=== PATIENT | male | born 1975 | race Caucasian/White ===

== ENCOUNTER 2020-06-20 17:02 | Emergency (ER) | payer OTHER, SELFPAY | END 2020-06-20 18:43 | disposition left against medical advice (07) | PROVIDERS: Emergency Provider Emergency Medicine | DX: R06.02 Shortness of breath (principal) | CPT/HCPCS: 99281 ==

== ENCOUNTER 2020-06-27 06:43 | Inpatient (IN) | payer SELFPAY ==
[2020-06-27] VITALS (13 sets, daily range): BP systolic 119–187; BP diastolic 68–111; PULSE 90–150; RESP 14–26; TEMP 36.4–36.9; O2SAT 95–98; BMI 39.4
--- NOTE | 2020-06-27 06:50 | PC.NURSE ---
DISCLOSED THAT HE LOST HIS IN MARCH AND HAS BEEN HAVING DEPRESSION AND ANXIETY SINCE.
--- NOTE | 2020-06-27 07:14 | XR_ITS ---
EXAMINATION: XR CHEST CLINICAL INFORMATION: Shortness of breath COMPARISON: None TECHNIQUE: Frontal view of the chest was obtained. FINDINGS: Cardiac silhouette is at the upper limits of normal in size. The lungs are adequately aerated. There is mild asymmetric elevation of the right hemidiaphragm. Subtle linear opacity in the lateral left lung base is most suggestive of atelectasis. No lobar consolidation is present. No pleural effusion or pneumothorax. XR/XR chest 1V IMPRESSION: No acute pulmonary pathology.
--- NOTE | 2020-06-27 07:14 | ECG_ITS ---
Test Reason : RAPID HR Blood Pressure : / mmHG Vent. Rate : 122 BPM Atrial Rate : 416 BPM P-R Int : 000 ms QRS Dur : 098 ms QT Int : 284 ms P-R-T Axes : 000 034 020 degrees QTc Int : 404 ms Atrial fibrillation with rapid ventricular response Abnormal ECG No previous ECGs available Referred By: Desi Paniagua Electronically Signed By:MARTINA BACA MD
--- NOTE | 2020-06-27 07:22 | ED_ITS ---
HPI - General Adult General Chief complaint: General Medical Stated complaint: Sob Time Seen by Provider: 06/27/20 07:13 Source: patient Mode of arrival: ambulatory Limitations: no limitations History of Present Illness HPI narrative: 45-year-old male walked into the emergency department for shortness of breath woke him up from sleep, patient woke up from sleep gasping for air and feeling anxious and hyperventilating as a result also has been having numbness in his both hands, patient declined any chest pain, patient declined any risk factor for PE, patient declined any history of lung disease however patient admitted to be a heavy smoker for many years, patient is heavyset but declined any history of sleep apnea or using CPAP/supplemental oxygen at home. Patient describes symptoms as shortness of breath with no chest pain started about 1 hour before arrival to the emergency department, usually improve when he sat up or get out of the bed, no relieving factor, no worsening factors either. No other associated symptoms be side being anxious. Patient also declined risk of exposure to COVID-19 infected personal. Related Data Allergies Allergy/AdvReac Type Severity Reaction Status Date / Time No Known Allergies Allergy Verified 06/27/20 06:49 [No Known Allergies*] Review of Systems Review of Systems: All other systems are reviewed and are negative Constitutional: Reports as per HPI and Reports no additional constitutional complaints Eyes: Reports as per HPI and Reports no additional eye complaints Reports system reviewed and no additional complaints, except as documented Cardiovascular: Reports as per HPI and Reports no additional cardiovascular complaints Respiratory: Reports as per HPI and Reports no additional respiratory complaints Gastrointestinal: Reports as per HPI and Reports no additional gastrointestinal complaints Genitourinary: Reports no additional female genitourinary complaints Musculoskeletal: Reports no additional musculoskeletal complaints Skin/Breast: Reports system reviewed and no additional complaints, except as docu Psychiatric: Reports no additional psychiatric complaints Endocrine: Reports no additional endocrine complaints Hematologic/Lymphatic: Reports no additional hematologic/lymphatic complaints Allergic/Immunologic: Reports no additional allergic/immunologic complaints Reports system reviewed and no additional complaints, except as documented and Reports Abnormal speech present PMFSH Past Medical History Medical History Asthma HTN (hypertension) Social History Social History Advance Directives: No Advance Directives Information Provided: Yes Physical Exam Vital Signs: Vital Signs: Last Vital Signs Temp 98.0 F 06/27/20 06:45 Pulse 101 H 06/27/20 08:06 Resp 16 06/27/20 07:43 BP 129/78 06/27/20 08:06 Pulse Ox 98 06/27/20 08:06 Body Mass Index 39.4 Vital signs have been reviewed as normal and appeared to be correct. Blood pressure in the high range. Tachycardia. Tachypnea. Temperature normal. Oxygen saturation normal. Appearance: Alert. Oriented X3. Anxious Head: Normal external exam. Normocephalic. Atraumatic. No Castro signs noted. No raccoon eyes noted Eyes: PERRLA. EOMI. Conjunctiva and sclera normal. Eyelids normal. ENT: EAC normal. TM's Normal. Pharynx normal. Uvula midline. Moist mucous membranes. No trismus noted. No drooling noted. No muffled voice noted. Neck: Normal inspection. Neck supple. FROM. No adenopathy. Thyroid Normal. No meningeal signs. No neck mass noted. No JVD CVS: Rapid heart rate with regular irregular beats.. Heart sound normal. No murmurs noted. Pulses normal throughout. Respiratory: No respiratory distress. Painless inspiration. Breath sounds normal. No wheezes/rales/rhonchi noted. Chest nontender. No accessory muscle usage noted or decreased air movement noted. Abdomen: Soft and nontender. Bowel sounds normal in all 4 quadrants. No distention noted. No organomegaly noted. No visible injury noted. Back: No CVA tenderness. Full range of motion noted. Skin: Skin warm and dry. Normal skin color. Normal skin turgor. No rashes/lesions/lacerations noted. Extremities: + 1 lower extremity edema. Extremities exhibit normal range of motion. Extremities nontender. Neuro: Oriented X 3. No motor deficit. No sensory deficit. Reflexes normal. Course Course Course Narrative: 45 years old male relatively otherwise healthy heavy smoker presented with intermittent episodes of shortness of breath, patient found to have atrial fibrillation with rapid ventricular response in the emergency department patient reported there is no past history of atrial fibrillation. Start the patient on AV block age (Cardizem), chest x-ray, check labs, re- evaluate the patient. Medical Decision Making MDM Narrative Medical decision making narrative: Assessment and plan. 45-year-old male woke up at 5 a.m. this morning with difficulty breathing and gasping for air, patient also appeared anxious with component of h yperventilation as a result. 1. EKG showing new onset of atrial fibrillation with rapid ventricular response, patient received a loading dose of Cardizem which was successful to achieve heart rate 90s to 110s, will start the patient on Cardizem drip and admit. 2. Because the anxiety component of patient's symptoms patient receive Ativan in the ED. 3. Patient had low risk for PE and D-dimer was unremarkable. 4. Tested negative for COVID. 5. Will repeat troponin in 3 hours. Admit the patient. Lab Data Lab results reviewed: Yes I reviewed the patient's lab results. Result diagrams: 06/27/20 07:22 06/27/20 07:21 Labs: Lab Results 06/27/20 06/27/20 06/27/20 Range/Units 07:21 07:21 07:22 WBC 3.7 L (4.8-10.8) X10*3/uL RBC 4.83 (4.60-5.80) X10*6/uL Hgb 15.6 (14.0-18.0) g/dl Hct 46.1 (42-52) % MCV 95.4 (80-98) fL MCH 32.3 (27.0-33.0) pg MCHC 33.8 (31.0-36.0) g/dl RDW 13.8 (11.0-16.0) % Plt Count 101 L (160-400) X10*3/uL MPV 9.7 (9.4-12.4) fL Immature Gran % (Auto) 0.5 H (0.0-0.4) % Neut % (Auto) 53.9 (45-73) % Lymph % (Auto) 27.5 (20-40) % [place] % (Auto) 13.6 H (2-11) % Eos % (Auto) 3.2 (0-4) % Baso % (Auto) 1.3 (0-2) % Lymph # (Auto) 1.0 L (1.2-4.9) X10*3/uL [place] # (Auto) 0.5 (0.1-1.2) X10*3/uL Eos # (Auto) 0.1 (0.0-0.4) X10*3/uL Baso # (Auto) 0.1 (0.0-0.2) X10*3/uL Abs Immat Gran (auto) 0.02 (0.00-0.03) X10*3/uL Absolute Neuts (auto) 2.0 (2.0-8.3) X10*3/uL Absolute Nucleated RBC 0.000 (0.0-0.012) X10*3/uL Nucleated RBC % (auto) 0.0 (0.0-0.2) /100WBC D-Dimer NG/ML Sodium 138 (135-145) mmol/L Potassium 3.7 (3.3-5.1) mmol/l Chloride 102 (96-108) mmol/L Carbon Dioxide 22 (22-29) mmol/L Anion Gap 18 (12-20) BUN 12 (9-16) mg/dL Creatinine 0.71 (0.5-1.4) mg/dL Estim Creat Clear Calc 182.5 Estimated GFR > 60 Random Glucose 146 H (60-115) mg/dL Calcium 8.4 (8.4-10.2) mg/dL Total Bilirubin 1.0 (0.0-1.0) mg/dL Direct Bilirubin 0.6 H (0.0-0.5) mg/dL AST 107 H (5-37) U/L ALT 81 H (0-40) U/L Alkaline Phosphatase 86 (39-117) U/L Troponin I High Sens 14.1 (<3.5-35.0) ng/L B-Natriuretic Peptide 12 (<100) pg/mL Total Protein 7.7 (6.5-8.0) g/dL Albumin 3.6 (3.5-5.0) g/dL Lipase 68 (8-78) U/L COVID-19 (CARL) (Negative) COVID-19 Clin Com 06/27/20 06/27/20 Range/Units 07:22 07:22 WBC (4.8-10.8) X10*3/uL RBC (4.60-5.80) X10*6/uL Hgb (14.0-18.0) g/dl Hct (42-52) % MCV (80-98) fL MCH (27.0-33.0) pg MCHC (31.0-36.0) g/dl RDW (11.0-16.0) % Plt Count (160-400) X10*3/uL MPV (9.4-12.4) fL Immature Gran % (Auto) (0.0-0.4) % Neut % (Auto) (45-73) % Lymph % (Auto) (20-40) % [place] % (Auto) (2-11) % Eos % (Auto) (0-4) % Baso % (Auto) (0-2) % Lymph # (Auto) (1.2-4.9) X10*3/uL [place] # (Auto) (0.1-1.2) X10*3/uL Eos # (Auto) (0.0-0.4) X10*3/uL Baso # (Auto) (0.0-0.2) X10*3/uL Abs Immat Gran (auto) (0.00-0.03) X10*3/uL Absolute Neuts (auto) (2.0-8.3) X10*3/uL Absolute Nucleated RBC (0.0-0.012) X10*3/uL Nucleated RBC % (auto) (0.0-0.2) /100WBC D-Dimer < 200 NG/ML Sodium (135-145) mmol/L Potassium (3.3-5.1) mmol/l Chloride (96-108) mmol/L Carbon Dioxide (22-29) mmol/L Anion Gap (12-20) BUN (9-16) mg/dL Creatinine (0.5-1.4) mg/dL Estim Creat Clear Calc Estimated GFR Random Glucose (60-115) mg/dL Calcium (8.4-10.2) mg/dL Total Bilirubin (0.0-1.0) mg/dL Direct Bilirubin (0.0-0.5) mg/dL AST (5-37) U/L ALT (0-40) U/L Alkaline Phosphatase (39-117) U/L Troponin I High Sens (<3.5-35.0) ng/L B-Natriuretic Peptide (<100) pg/mL Total Protein (6.5-8.0) g/dL Albumin (3.5-5.0) g/dL Lipase (8-78) U/L COVID-19 (CARL) Negative (Negative) COVID-19 Clin Com See Note Imaging Data Chest x-ray: Radiologist's impression: No acute pulmonary pathology. ECG Data Interpretation: Atrial fibrillation with rapid ventricular response at 122 beats per minutes, normal axis deviation, otherwise normal intervals. Critical Care Time Critical Care Time Critical Care Time: Yes Total Critical Care Time: 40 Attestation: I spent 40 minutes providing critical care level to the patient at the bedside, reviewing x-ray, monitoring patient on anti arrhythmia IV drips, reassessing the patient, consulting with hospitalist to admit. Discharge Plan Discharge Clinical Impression: Acute dyspnea, Atrial fibrillation, new onset, Anxiety Patient Disposition: Admitted As Inpatient
[2020-06-27 07:32] LABS: MANUAL DIFF FLAG NO
[2020-06-27] MEDS: dilTIAZem HCL 50 MG/10 ML VIAL 20 MG IVPUSH (07:38)
[2020-06-27 07:41] LABS: Basophils Absolute Auto 0.1 X10*3/uL (0.0-0.2); Basophils Percent Auto 1.3 % (0-2); Eosinophils Absolute Auto 0.1 X10*3/uL (0.0-0.4); Eosinophils Percent Auto 3.2 % (0-4); Hematocrit 46.1 % (42-52); Hemoglobin 15.6 g/dl (14.0-18.0); Imm Gran Abs Auto 0.02 X10*3/uL (0.00-0.03); Imm Gran Pct Auto 0.5 % (0.0-0.4); Lymphocytes Percent Auto 27.5 % (20-40); Mean Corpuscular HGB Conc 33.8 g/dl (31.0-36.0); Mean Corpuscular Hemoglobin 32.3 pg (27.0-33.0); Mean Corpuscular Volume 95.4 fL (80-98); Mean Platelet Volume 9.7 fL (9.4-12.4); Monocytes Absolute Auto 0.5 X10*3/uL (0.1-1.2); Monocytes Percent Auto 13.6 % (2-11); Neutrophils Percent Auto 53.9 % (45-73); Platelet Count 101 X10*3/uL (160-400); Red Blood Count 4.83 X10*6/uL (4.60-5.80); Red Cell Distribution Width 13.8 % (11.0-16.0); White Blood Count 3.7 X10*3/uL (4.8-10.8)
[2020-06-27 07:50] LABS: D Dimer < 200 NG/ML
[2020-06-27 07:51] LABS: COVID-19 Test Negative (Negative); IDNOW Serial# 9DD0AD1C
[2020-06-27 08:10] LABS: Alanine Aminotransferase 81 U/L (0-40); Albumin Level 3.6 g/dL (3.5-5.0); Alkaline Phosphatase 86 U/L (39-117); Anion Gap 18 (12-20); Aspartate Amino Transferase 107 U/L (5-37); Bilirubin Direct 0.6 mg/dL (0.0-0.5); Blood Urea Nitrogen 12 mg/dL (9-16); Calcium 8.4 mg/dL (8.4-10.2); Carbon Dioxide 22 mmol/L (22-29); Chloride 102 mmol/L (96-108); Creatinine Clr Calc Pharmacy 182.5; Estimated Glomerular Filt Rate > 60; Glucose Random 146 mg/dL (60-115); Lipase 68 U/L (8-78); Potassium 3.7 mmol/l (3.3-5.1); Sodium 138 mmol/L (135-145); Total Protein 7.7 g/dL (6.5-8.0)
[2020-06-27 08:11] LABS: B Type Natriuretic Peptide 12 pg/mL (<100); Troponin-I High Sensitivity 14.1 ng/L (<3.5-35.0)
--- NOTE | 2020-06-27 08:30 | PC.NURSE ---
pt continues pretty anxious HR increases with movement otherwise he is maintaining under 100bpm without the cardizem gtt
[2020-06-27] MEDS: LORazepam 2 MG/ML VIAL 0.5 MG IVPUSH (08:37)
[2020-06-27] MEDS: dilTIAZem HCL 125 MG in 0.9 % Sodium Chloride 100 ML 10 MG IVCONT (09:13)
[2020-06-27 10:25] LABS: Ethanol 112 mg/dL
[2020-06-27 10:27] LABS: Magnesium 1.8 mg/dL (1.6-2.6)
[2020-06-27 10:48] LABS: TSH reflex Free T4 2.63 mIU/mL (0.32-4.0)
[2020-06-27 10:50] LABS: Troponin-I High Sensitivity 13.3 ng/L (<3.5-35.0)
--- NOTE | 2020-06-27 10:50 | P.HPHOSP_ITS ---
History of Present Illness Date of Service: 06/27/20 <DEB Anderson - Last Filed: 06/27/20 11:18> Chief Complaint: Shortness of breath <DEB Anderson Last Filed: 06/27/20 11:18> this is a 45-year-old male who presents to the emergency department with shortness of breath. Over the past 1-2 weeks he has had episodes of transient shortness of breath. This morning he woke at 05:00 with severe shortness of breath. This was associated with nausea, dry heaving and palpitations. His sy mptoms persisted longer than his previous episodes so he came to the emergency department for evaluation. On arrival he was noted to be tachycardic and EKG showed atrial fibrillation with rapid ventricular response. He was given a dose of IV Cardizem and then started on a Cardizem drip. Patient has no history of atrial fibrillation. His only known history is hypertension for which he stopped taking his valsartan many years ago. He has not seen his primary care physician in several years. His in March of this year and since that time he has been drinking daily increasing his tobacco use and has been out of work. Lab work revealed leukopenia, thrombocytopenia, mild e levation in LFTs. He was also noted to have bilateral lower extremity edema which she reports is been present for the past 3 weeks. BNP was 12 and chest x- ray showed no evidence of fluid overload. Inpatient admission was requested for management of new onset Atrial fibrillation. <DEB Anderson - Last Filed: 06/27/20 11:18> Review of Systems Review of Systems: Yes all other systems are reviewed and are negative <DEB Anderson Last Filed: 06/27/20 11:18> Cardiovascular: Cardiovascular: Reports palpitations, Reports dyspnea and Reports paroxysmal nocturnal dyspnea <DEB Anderson Last Filed: 06/27/20 11:18> Respiratory: Respiratory: Reports dyspnea <DEB Anderson Last Filed: 06/27/20 11:18> Gastrointestinal: Gastrointestinal: Reports nausea <DEB Anderson Last Filed: 06/27/20 11:18> Endocrine: Endocrine: Reports palpitations <DEB Anderson Last Filed: 06/27/20 11:18> [facility] Medical History: Medical History Alcohol use disorder Asthma HTN (hypertension) Tobacco dependence <DEB Anderson - Last Filed: 06/27/20 11:18> Functional capacity: independent ambulation <DEB Anderson - Last Filed: 06/27/20 11:18> Family History: Family History Mother Colon cancer Diabetes <DEB Anderson - Last Filed: 06/27/20 11:18> Surgical History: Surgical History History of ankle surgery <DEB Anderson - Last Filed: 06/27/20 11:18> Social History: Social History Household Members: None Housing: House Alcohol intake: current Alcohol intake frequency: 3 or more drinks per day Alcohol type: beer Smoking Status: Current every day smoker Packs Per Day: 1 Smoked in Last 30 Days: Yes Patient Interested in Nicotine Replacement: Yes Use of substances other than those prescribed or required for medical reasons: No Substance Use Type: Marijuana Have you been hit, kicked, punched, or otherwise hurt by someone within the past year? If so, by whom?: No Do you feel safe in your current relationship?: No Is there a partner from a previous relationship who is making you feel unsafe now?: No Are you made to feel afraid or neglected: No Advance Directives: No Advance Directives Information Provided: Yes Do you have thoughts of harming others: None Do you have a plan to hurt others: No Plan Recently lost weight without trying: No service: No <DEB Anderson Last Filed: 06/27/20 11:18> Meds Allergies/Adverse reactions: Allergies Allergy/AdvReac Type Severity Reaction Status Date / Time No Known Allergies Allergy Verified 06/27/20 06:49 [No Known Allergies*] <DEB Anderson Last Filed: 06/27/20 11:18> Home medications: Home Medications Medication Instructions Recorded Confirmed Type No Known Home Meds 06/27/20 06/27/20 History <DEB Anderson - Last Filed: 06/27/20 11:18> Physical Exam Vital Signs and Narrative: Vital Signs: Last Vital Signs Temp 98.0 F 06/27/20 06:45 Pulse 102 H 06/27/20 09:47 Resp 16 06/27/20 09:47 BP 129/78 06/27/20 08:06 Pulse Ox 98 06/27/20 09:47 Body Mass Index 39.4 <DEB Anderson - Last Filed: 06/27/20 11:18> Const: Nutritional Appearance: obese <DEB Anderson - Last Filed: 06/27/20 11:18> Orientation/consciousness: patient oriented x3 <DEB Anderson - Last Filed: 06/27/20 11:18> HENMT: Head: Yes normocephalic and Yes atraumatic <DEB Anderson - Last Filed: 06/27/20 11:18> Eyes: Sclerae: sclerae normal <DEB Anderson - Last Filed: 06/27/20 11:18> Chest: Chest palpation & inspection: normal inspection of the chest <DEB Anderson - Last Filed: 06/27/20 11:18> Resp: Effort & Inspection: labored, no pursed lip breathing and no retractions <DEB Anderson - Last Filed: 06/27/20 11:18> Auscultation: diminished lung sounds <DEB Anderson - Last Filed: 06/27/20 11:18> Cardio: Rate: tachycardic <DEB Anderson - Last Filed: 06/27/20 11:18> Rhythm: abnormal rhythm irregularly irregular <DEB Anderson - Last Filed: 06/27/20 11:18> GI: Palpation (GI): Soft to palpation and nontender <DEB Anderson - Last Filed: 06/27/20 11:18> Skin: General skin exam: no rashes or lesions noted <DEB Anderson - Last Filed: 06/27/20 11:18> Neuro: General: patient oriented x3 <DEB Anderson - Last Filed: 06/27/20 11:18> Cranial nerves: Yes CN's II-XII intact bilaterally and Yes Bilaterally intact EOM present <DEB Anderson - Last Filed: 06/27/20 11:18> Extrem: Other: 3+ edema b/l to knee <DEB Anderson - Last Filed: 06/27/20 11:18> Right lower extremity: edema <DEB Anderson - Last Filed: 06/27/20 11:18> Left lower extremity: edema <DEB Anderson - Last Filed: 06/27/20 11:18> Results Labs CBC and Chem 7: : 06/28/20 10:18 06/28/20 10:17 <DEB Anderson - Last Filed: 06/27/20 11:18> Labs: Laboratory Results - last 24 hr 06/27/20 06/27/20 06/27/20 07:21 07:21 07:21 MCV MCH MCHC RDW Plt Count MPV Immature Gran % (Auto) Neut % (Auto) Lymph % (Auto) [place] % (Auto) Eos % (Auto) Baso % (Auto) Lymph # (Auto) [place] # (Auto) Eos # (Auto) Baso # (Auto) Abs Immat Gran (auto) Absolute Neuts (auto) Absolute Nucleated RBC Nucleated RBC % (auto) D-Dimer Anion Gap 18 Estim Creat Clear Calc 182.5 Estimated GFR > 60 Random Glucose 146 H Calcium 8.4 Magnesium 1.8 Total Bilirubin 1.0 Direct Bilirubin 0.6 H AST 107 H ALT 81 H Alkaline Phosphatase 86 Troponin I High Sens 14.1 B-Natriuretic Peptide 12 Total Protein 7.7 Albumin 3.6 Lipase 68 TSH 2.63 Ethyl Alcohol 112 COVID-19 (CARL) COVID-19 Clin Com 06/27/20 06/27/20 06/27/20 07:22 07:22 07:22 MCV 95.4 MCH 32.3 MCHC 33.8 RDW 13.8 Plt Count 101 L MPV 9.7 Immature Gran % (Auto) 0.5 H Neut % (Auto) 53.9 Lymph % (Auto) 27.5 [place] % (Auto) 13.6 H Eos % (Auto) 3.2 Baso % (Auto) 1.3 Lymph # (Auto) 1.0 L [place] # (Auto) 0.5 Eos # (Auto) 0.1 Baso # (Auto) 0.1 Abs Immat Gran (auto) 0.02 Absolute Neuts (auto) 2.0 Absolute Nucleated RBC 0.000 Nucleated RBC % (auto) 0.0 D-Dimer < 200 Anion Gap Estim Creat Clear Calc Estimated GFR Random Glucose Calcium Magnesium Total Bilirubin Direct Bilirubin AST ALT Alkaline Phosphatase Troponin I High Sens B-Natriuretic Peptide Total Protein Albumin Lipase TSH Ethyl Alcohol COVID-19 (CARL) Negative COVID-19 Clin Com See Note 06/27/20 10:22 MCV MCH MCHC RDW Plt Count MPV Immature Gran % (Auto) Neut % (Auto) Lymph % (Auto) [place] % (Auto) Eos % (Auto) Baso % (Auto) Lymph # (Auto) [place] # (Auto) Eos # (Auto) Baso # (Auto) Abs Immat Gran (auto) Absolute Neuts (auto) Absolute Nucleated RBC Nucleated RBC % (auto) D-Dimer Anion Gap Estim Creat Clear Calc Estimated GFR Random Glucose Calcium Magnesium Total Bilirubin Direct Bilirubin AST ALT Alkaline Phosphatase Troponin I High Sens 13.3 B-Natriuretic Peptide Total Protein Albumin Lipase TSH Ethyl Alcohol COVID-19 (CARL) COVID-19 Clin Com <DEB Anderson - Last Filed: 06/27/20 11:18> Imaging Radiologist's Impressions: Impressions Chest X-Ray 06/27/20 07:14 IMPRESSION: No acute pulmonary pathology. <DEB Anderson - Last Filed: 06/27/20 11:18> Assessment and Plan (1) Atrial fibrillation, new onset: Status: Acute <DEB Anderson - Last Filed: 06/27/20 11:18> (2) Alcohol use disorder: Status: Inactive <DEB Anderson - Last Filed: 06/27/20 11:18> (3) Tobacco dependence: Status: Inactive <DEB Anderson - Last Filed: 06/27/20 11:18> this is a 45-year-old male with a history of hypertension who presents to the emergency department with intermittent episodes of dyspnea found to be in new onset atrial fibrillation new onset atrial fibrillation with rapid ventricular response - continue Cardizem drip, start p.o. Cardizem and wean drip - echocardiogram - cardiology consult - seen by cardiology in ED. Plan for CV in AM. Will keep NPO at midnight - check mag, TSH - CHADs score 1 for HTN, not candidate for AC at this time. acute CHF related to AFib with RVR - echocardiogram - IV Lasix - daily weight alcohol dependence no evidence of alcohol withdrawal at this time - add alcohol level, magnesium - start phenobarbital - supplement with thiamine, folate - care team evaluation prior to discharge tobacco dependence - smoking cessation advised -NRT thrombocytopenia - possibly related to alcohol - follow CBC leukopenia no previous CBC available - follow CBC mild transaminitis likely related to alcohol use / fatty liver - outpatient followup likely GIANNI - recommend outpatient sleep study morbid obesity BMI 39.4 weight loss encouraged uncontrolled hypertension noncompliant with medication for several years - follow blood pressure closely, may need antihypertensive upon discharge DVT prophylaxis- Lovenox code status- full code this case was discussed with Dr. Lentz <DEB Anderson - Last Filed: 06/27/20 11:18>
[2020-06-27] MEDS: PHENobarbitaL sodium 130 MG/ML VIAL 250 MG IM (11:50)
--- NOTE | 2020-06-27 11:50 | P.CONCA_ITS ---
History of Present Illness History of Present Illness Date of Consult: June 27, 2020 Requesting physician: Daja Chavira Consult reason: atrial fibrillation and shortness of breath Chief complaint: Sob Narrative: thank you for inviting us the consult on Merrick for new onset atrial fibrillation and sudden shortness of breath. He is a 45-year-old male who has not seen a doctor in 5 years. He says he has been busy with work. He has hypertension but currently not on treatment. Over the last 2 weeks he has been having intermittent symptoms of palpitation associated with sudden shortness of breath. He did not pay much attention to it until when he got suddenly short of breath. He did try to calmed down symptoms somewhat subsided. However this morning again symptoms came back with significant shortness of breath and decided to come to the emergency room. No associated chest discomfort. Does complain of rapid heart rate. Denies any lightheadedness, syncope. He has noted swelling in his feet over the last 2 weeks since the symptom onset. Denies abdominal distension. His BNP is within normal limits. Noted to be in atrial fibrillation with somewhat rapid ventricular response currently on Cardizem drip. He also got some Ativan for anxiety. He says anxiety has improved. He denies any other recent systemic symptoms. Review of Systems Constitutional: Constitutional: Denies body ache(s), Denies chills, Reports daytime sleepiness, Reports lethargy, Reports snoring, Denies weight gain and Denies weight loss Cardiovascular: Cardiovascular: Denies chest pain, Reports rapid heart rate, Denies lightheadedness, Denies Loss of Consciousness, Reports palpitations, Reports dyspnea and Reports paroxysmal nocturnal dyspnea Respiratory: Respiratory: Denies chest congestion, Denies excessive phlegm production, Reports dyspnea and Reports snoring Gastrointestinal: Gastrointestinal: Reports no additional gastrointestinal complaints Genitourinary: Genitourinary: Reports no additional male genitourinary complaints Neurologic: Reports system reviewed and no additional complaints, except as documented Psychiatric: Psychiatric: Reports no additional psychiatric complaints Endocrine: Endocrine: Reports no additional endocrine complaints and Reports palpitations Hematologic/Lymphatic: Hematologic/Lymphatic: Reports no additional hematologic/lymphatic complaints Allergic/Immunologic: Allergic/Immunologic: Reports no additional allergic/immunologic complaints PMFSH Past Medical History Medical History Alcohol use disorder Asthma HTN (hypertension) Tobacco dependence Functional capacity: independent ambulation Family History Family History Mother Colon cancer Diabetes Surgical History Surgical History History of ankle surgery Social History Social History Household Members: None Alcohol intake: current Alcohol intake frequency: 3 or more drinks per day Alcohol type: beer Smoking Status: Current every day smoker Packs Per Day: 1 Smoked in Last 30 Days: Yes Use of substances other than those prescribed or required for medical reasons: No Substance Use Type: Marijuana Advance Directives: No Advance Directives Information Provided: Yes Meds Allergies Allergy/AdvReac Type Severity Reaction Status Date / Time No Known Allergies Allergy Verified 06/27/20 06:49 [No Known Allergies*] Home Medications Medication Instructions Recorded Confirmed Type No Known Home Meds 06/27/20 06/27/20 History Physical Exam Vital Signs: Vital Signs: Last Vital Signs Temp 98.0 F 06/27/20 06:45 Pulse 102 H 06/27/20 09:47 Resp 16 06/27/20 09:47 BP 129/78 06/27/20 08:06 Pulse Ox 98 06/27/20 09:47 Body Mass Index 39.4 Const: General: cooperative, alert, awake and in distress mild and respiratory Nutritional Appearance: obese Orientation/consciousness: patient oriented x3 Limitations: no limitations HENMT: Head: Yes normal to inspection, Yes normocephalic and Yes atraumatic Eyes: General: appearance normal, both eyes and all related structures Neck: Neck: Yes trachea midline, Yes supple and Yes no JVD Chest: Chest palpation & inspection: normal inspection of the chest Resp: Effort & Inspection: normal respiratory effort Auscultation: clear to auscultation bilaterally Cardio: Jugular venous distension: no JVD Rate: tachycardic Rhythm: abnormal rhythm irregularly irregular Heart sounds: S1 normal heart sound present and S2 normal heart sound present GI: Inspection: Yes normal to inspection Auscultation: normal bowel sounds Skin: General skin exam: no rashes or lesions noted Neuro: General: patient oriented x3 and no focal motor deficits Extrem: General: Yes edema Psych: Appearance: grossly normal Affect: Anxious affect present Results Labs and Meds Result diagrams: 06/27/20 07:22 06/27/20 07:21 Lab results: Laboratory Results - last 24 hr 06/27/20 06/27/20 06/27/20 07:21 07:21 07:21 WBC RBC Hgb Hct MCV MCH MCHC RDW Plt Count MPV Immature Gran % (Auto) Neut % (Auto) Lymph % (Auto) [place] % (Auto) Eos % (Auto) Baso % (Auto) Lymph # (Auto) [place] # (Auto) Eos # (Auto) Baso # (Auto) Abs Immat Gran (auto) Absolute Neuts (auto) Absolute Nucleated RBC Nucleated RBC % (auto) D-Dimer Sodium 138 Potassium 3.7 Chloride 102 Carbon Dioxide 22 Anion Gap 18 BUN 12 Creatinine 0.71 Estim Creat Clear Calc 182.5 Estimated GFR > 60 Random Glucose 146 H Calcium 8.4 Magnesium 1.8 Total Bilirubin 1.0 Direct Bilirubin 0.6 H AST 107 H ALT 81 H Alkaline Phosphatase 86 Troponin I High Sens 14.1 B-Natriuretic Peptide 12 Total Protein 7.7 Albumin 3.6 Lipase 68 TSH 2.63 Ethyl Alcohol 112 COVID-19 (CARL) COVID-19 [employer] 06/27/20 06/27/20 06/27/20 07:22 07:22 07:22 WBC 3.7 L RBC 4.83 Hgb 15.6 Hct 46.1 MCV 95.4 MCH 32.3 MCHC 33.8 RDW 13.8 Plt Count 101 L MPV 9.7 Immature Gran % (Auto) 0.5 H Neut % (Auto) 53.9 Lymph % (Auto) 27.5 [place]ke % (Auto) 13.6 H Eos % (Auto) 3.2 Baso % (Auto) 1.3 Lymph # (Auto) 1.0 L [place]ke # (Auto) 0.5 Eos # (Auto) 0.1 Baso # (Auto) 0.1 Abs Immat Gran (auto) 0.02 Absolute Neuts (auto) 2.0 Absolute Nucleated RBC 0.000 Nucleated RBC % (auto) 0.0 D-Dimer < 200 Sodium Potassium Chloride Carbon Dioxide Anion Gap BUN Creatinine Estim Creat Clear Calc Estimated GFR Random Glucose Calcium Magnesium Total Bilirubin Direct Bilirubin AST ALT Alkaline Phosphatase Troponin I High Sens B-Natriuretic Peptide Total Protein Albumin Lipase TSH Ethyl Alcohol COVID-19 (CARL) Negative COVID-19 [employer] See Note 06/27/20 10:22 WBC RBC Hgb Hct MCV MCH MCHC RDW Plt Count MPV Immature Gran % (Auto) Neut % (Auto) Lymph % (Auto) [place]ke % (Auto) Eos % (Auto) Baso % (Auto) Lymph # (Auto) [place] # (Auto) Eos # (Auto) Baso # (Auto) Abs Immat Gran (auto) Absolute Neuts (auto) Absolute Nucleated RBC Nucleated RBC % (auto) D-Dimer Sodium Potassium Chloride Carbon Dioxide Anion Gap BUN Creatinine Estim Creat Clear Calc Estimated GFR Random Glucose Calcium Magnesium Total Bilirubin Direct Bilirubin AST ALT Alkaline Phosphatase Troponin I High Sens 13.3 B-Natriuretic Peptide Total Protein Albumin Lipase TSH Ethyl Alcohol COVID-19 (CARL) COVID-19 [employer] MPRESSION: No acute pulmonary pathology. Laboratory Tests 06/27/20 07:21 B-Natriuretic Peptide 12 Assessment and Plan (1) Atrial fibrillation, new onset: Status: Acute new onset atrial fibrillation with rapid ventricular response difficult control. Appears to be at least 2 weeks in duration. Highly symptomatic related to atrial fibrillation due to loss of AV synchrony. Could have underlying tachycardia mediated cardiomyopathy. Also high likelihood of underlying sleep apnea. Also has untreated blood pressure. Continue Cardizem drip. Can add metoprolol to his regimen for rate control orally. Will most likely require JOSE MARIA guided cardioversion, will schedule for tomorrow. Please keep NPO past midnight. Discussed with patient about risks benefits alternatives about JOSE MARIA he understands and agrees. Also discuss with him about risks benefits alternatives for cardioversion. Start oral anticoagulation, can use Xarelto 20 mg. will require outpatient workup for sleep apnea. (2) CHF (congestive heart failure): Status: Acute Symptoms highly suggestive of heart failure. He is clinically fluid overloaded. BNP is falsely negative related to his obesity most likely. Start IV diuresis with Lasix 40 mg b.i.d.. Continue aggressive rate control. Echocardiogram tomorrow to assess LV systolic and diastolic function, will start the JOSE MARIA 1st. Will follow with the patient. Importance of compliance with medication was discussed. Heart failure education should be provided. Thank you for allowing to partake in his care Procedures Abscess I/D Date of Service: 06/27/20
--- NOTE | 2020-06-27 14:35 | PC.NURSE ---
AWAITING CALL BACK FROM RN IN [facility]
--- NOTE | 2020-06-27 15:32 | P.EN_ITS ---
Event Note Date of Service: 06/27/20 Event Note: patient seen examined with APC 45-year-old gentleman with past medical history significant for hypertension, not compliant with medication, tobacco dependence, alcohol use presented to [facility] due to symptoms of palpitation intermittently for 2 weeks dur ation associated with shortness of breath, no chest pain, patient also noted bilateral lower extremity swelling for last couple weeks, he denies prior similar episode, he denies fever chills no lightheadedness dizziness, syncope in the ER patient noted to be in atrial fibrillation with rapid ventricular response, chest x-ray showed no evidence of pneumonia or CHF on exam patient awake alert in mild respiratory distress neck is supple, no JVD heart irregular lungs no crackles extremities bilateral pitting edema atrial fibrillation with RVR likely related to uncontrolled hypertension, alcohol use, patient started on IV Cardizem drip that will be titrated will place patient on by mouth Cardizem, obtain echocardiogram, patient seen by Dr. baron he is planning on cardioversion continue tele monitor, NPO after midnight and will start on Xarelto, clinically patient appears to be in heart failure although chest x-ray and BNP are unremarkable therefore will be treated with IV Lasix 40 mg b.i.d. follow I's and os, daily weight and a BMP alcohol abuse with high risk for withdrawal patient replaced on phenobarb tobacco use disorder counseling done morbid obesity weight reduction recommended hypertension currently on Cardizem will follow blood pressure and adjust medication agree with treatment plan as per APC DVT prophylaxis on Xarelto
[2020-06-27] MEDS: PHENobarbitaL sodium 130 MG/ML VIAL 180 MG IM (15:36)
--- NOTE | 2020-06-27 15:46 | PC.NURSE ---
REPORT GIVEN TO RN IN IMC
[2020-06-27] MEDS: Morphine Sulfate 4 MG/ML CARTRIDGE 3 MG IVPUSH (16:57)
[2020-06-27] MEDS: 0.9 % Sodium Chloride Flush 3 ML SYRINGE IVFLUSH ×2 (17:26→23:51)
[2020-06-27] MEDS: Rivaroxaban 20 MG TABLET PO (17:54)
[2020-06-27] MEDS: Furosemide 40 MG/4 ML VIAL IVPUSH (17:55)
[2020-06-27] MEDS: dilTIAZem HCL 30 MG TABLET PO ×2 (17:55→23:55)
[2020-06-27 18:47] LABS: Troponin-I High Sensitivity 20.5 ng/L (<3.5-35.0)
[2020-06-28] VITALS (9 sets, daily range): BP systolic 115–184; BP diastolic 59–107; PULSE 72–108; RESP 18–20; TEMP 35.9–37.1; O2SAT 90–98; BMI 41.8
--- NOTE | 2020-06-28 | ECG_ITS ---
Test Reason : converted to nsr Blood Pressure : / mmHG Vent. Rate : 087 BPM Atrial Rate : 087 BPM P-R Int : 168 ms QRS Dur : 096 ms QT Int : 368 ms P-R-T Axes : 025 031 047 degrees QTc Int : 442 ms Normal sinus rhythm Normal ECG Normal sinus rhythm has replaced Atrial fibrillation Referred By: Clare Lentz Electronically Signed By:MARTINA BACA MD
--- NOTE | 2020-06-28 00:15 | PC.NURSE ---
Patient noted to be in sinus rhythm at midnight assessment. EKG obtained and shows NSR, HR 80's. Cardizem drip turned off and scheduled 30mg PO cardizem administered. Dr Lange notified via [employer]. Will continue to monitor as pt is scheduled for a cardioversion on 06/28.
--- NOTE | 2020-06-28 00:23 | PC.NURSE ---
Addendum entered by Ana Savage RN 06/28/20 05:43: Patient continues to be in sinus rhythm, HR 80's. Original Note: Cardizem drip turned of at 2345.
[2020-06-28] MEDS: dilTIAZem HCL 30 MG TABLET PO (05:51)
[2020-06-28] MEDS: PHENobarbitaL 30 MG TABLET 60 MG PO ×2 (08:00→21:05)
[2020-06-28] MEDS: Folic Acid 1 MG TABLET PO (08:00)
[2020-06-28] MEDS: 0.9 % Sodium Chloride Flush 3 ML SYRINGE IVFLUSH ×3 (08:00→23:17)
[2020-06-28] MEDS: Thiamine HCL 100 MG TABLET PO (08:00)
[2020-06-28] MEDS: Furosemide 40 MG/4 ML VIAL IVPUSH (08:00)
--- NOTE | 2020-06-28 09:52 | MHC.CM.PN ---
dc plan home no serecveis pt has own transportion home
[2020-06-28] MEDS: dilTIAZem HCL CD 240 MG CAP.ER.DEG PO (10:06)
[2020-06-28 10:36] LABS: Basophils Absolute Auto 0.1 X10*3/uL (0.0-0.2); Eosinophils Absolute Auto 0.2 X10*3/uL (0.0-0.4); MANUAL DIFF FLAG SCAN; PLT CLUMP 1; Red Blood Count 5.04 X10*6/uL (4.60-5.80); SCAN SMEAR FLAG 1
[2020-06-28 10:38] LABS: Eosinophils Percent Auto 3.7 % (0-4); Hematocrit 48.6 % (42-52); Hemoglobin 16.4 g/dl (14.0-18.0); Imm Gran Abs Auto 0.03 X10*3/uL (0.00-0.03); Imm Gran Pct Auto 0.6 % (0.0-0.4); Lymphocytes Absolute Auto 0.9 X10*3/uL (1.2-4.9); Lymphocytes Percent Auto 17.9 % (20-40); Mean Corpuscular HGB Conc 33.7 g/dl (31.0-36.0); Mean Corpuscular Hemoglobin 32.5 pg (27.0-33.0); Mean Corpuscular Volume 96.4 fL (80-98); Mean Platelet Volume 10.1 fL (9.4-12.4); Monocytes Absolute Auto 0.5 X10*3/uL (0.1-1.2); Monocytes Percent Auto 8.9 % (2-11); Neutrophils Absolute Auto 3.5 X10*3/uL (2.0-8.3); Neutrophils Percent Auto 67.9 % (45-73); Platelet Count 119 X10*3/uL (160-400); Red Cell Distribution Width 13.8 % (11.0-16.0); White Blood Count 5.2 X10*3/uL (4.8-10.8)
[2020-06-28 10:59] LABS: Anion Gap 15 (12-20); Anion Gap 18 (12-20); Blood Urea Nitrogen 12 mg/dL (9-16); Blood Urea Nitrogen 13 mg/dL (9-16); Calcium 8.3 mg/dL (8.4-10.2); Carbon Dioxide 23 mmol/L (22-29); Carbon Dioxide 26 mmol/L (22-29); Chloride 97 mmol/L (96-108); Chloride 98 mmol/L (96-108); Creatinine Clr Calc Pharmacy 185.8; Estimated Glomerular Filt Rate > 60; Glucose Random 126 mg/dL (60-115); Magnesium 1.8 mg/dL (1.6-2.6); Potassium 3.5 mmol/l (3.3-5.1); Potassium 3.6 mmol/l (3.3-5.1); Sodium 134 mmol/L (135-145); Sodium 135 mmol/L (135-145)
--- NOTE | 2020-06-28 11:00 | CA_ITS ---
Transthoracic Echocardiogram Patient (Last, First, Middle): Merrick Arrington N Gender: Male Date of : 1975 Age: 45 Procedure Date: 06/28/2020 Procedure Type: Transthoracic Echocardiogram Location: [facility] – [place], [place] Height: 182.88 cm Weight: 140.62 kg BSA: 2.57 m2 Heart Rate: bpm BP: 140 / 78 mmHg Manager Business Management: Referring MD: Reddy Richards MD Symptoms: short of breath Study Quality: Technically Difficult due to obesity ECG Rhythm: Sinus Conclusions: - The left ventricular systolic function is normal. The visually estimated ejection fraction is between 60-65%. - Mildly increased right ventricular cavity size. There is normal right ventricular systolic function. - No obvious valvular pathology seen on this study. Findings Procedure Information Contrast agent, definity, is being given per protocol without apparent complications. Left Ventricle Normal left ventricular cavity size. There is mildly increased left ventricular wall thickness. The left ventricular systolic function is normal. The visually estimated ejection fraction is between 60-65%. There is no evidence of regional wall motion abnormalities. E/E prime ratio is between 8 and 15 consistent with indeterminate filling pressures. Evidence suggests grade I (mild) diastolic dysfunction. Right Ventricle Mildly increased right ventricular cavity size. There is normal right ventricular systolic function. Atria The left atrium is mildly dilated. The right atrium is normal in size. Aortic Valve The aortic valve was not well visualized. There is no aortic valve stenosis. There is no aortic valve regurgitation. Mitral Valve The mitral valve appears normal. There is trace mitral valve regurgitation. There is no mitral valve stenosis. Pulmonic Valve The pulmonic valve was not well visualized. Tricuspid Valve Normal tricuspid valve structure. There is trace tricuspid valve regurgitation. The right ventricular systolic pressure is 14 mmHg. The pulmonary artery systolic pressure may be underestimated. Great Vessels The aortic annulus, sinuses of valsalva, and asc aorta are normal in size. Venous The inferior vena cava was not well visualized. Pericardium/Pleural There is no evidence of pericardial effusion. Prior Study Comparison No prior study available for comparison. Recommendations, Care & Conclusions No obvious valvular pathology seen on this study. Measurements 2D Linear Measurements IVSd: 1.18 0.6-0.9/0.6-1.0 cm LVIDd: 4.57 3.9-5.3/4.2-5.9 cm LVIDd Index: 1.78 2.4-3.2/2.2-3.1 cm/m2 LVIDs: 3.02 2.0-3.6 cm LVPWd: 1.25 0.7-1.1 cm LA Diam: 4.40 2.7-3.8/3.0-4.0 cm LAIDs Index: 1.71 1.5-2.3 cm/m2 LV Mass: 257.46 67-162/88-224 g LV Mass Index: 100.18 43-95/49-115 g/m2 LVOT Diam: 2.30 3.0+(-)1.3 cm Mitral Valve MV Pk E: 0.66 MV PK A: 0.61 MV Decel Time: 137.00 E/A: 1.10 E'Lateral: 5.22 E'Medial: 5.71 E/E' Med: 11.60 E/E' Lat: 12.60 PHT: 40.00 MVA PHT: 5.50 Decel [place]: 4.80 Aortic Valve AoV Pk Bari: 1.28 AoV Mn Bari: 0.94 AoV VTI: 0.23 AoV Pk Grad: 7.00 Aov Mn Grad: 4.00 LAUREN Cont.VTI: 3.51 LVOT LVOT Pk Bari: 0.95 LVOT Mn Bari: 0.64 LVOT VTI: 0.19 LVOT Pk Grad: 4.00 LVOT Mn Grad: 2.00 LVOT Diam: 2.30 LVOT Area: 4.15 Diastolic Function MV Pk E: 0.66 MV Pk A: 0.61 E/A: 1.10 E'Medial: 5.71 E/E' Med: 11.60 E' Laterial: 5.22 E/E' Lat: 12.60 Tricuspid Valve TR Pk Bari: 1.65 TR Pk Grad: 11.00 RA Press: 3.00 RVSP: 14.00 Great Vessels Aorta Ao Asc: 3.30 2.1-3.4 cm Pulmonary Valve PV Pk Bari: 0.90 Peak PV Grad: 3.00 Updated in Other Vendor System with Status of Final Reddy Richards MD electronically signed on 06/28/2020 1:34:54 PM with status of Final
--- NOTE | 2020-06-28 11:10 | P.PNCA_ITS ---
Subjective Subjective Interval history: following up on atrial fibrillation with rapid rate. He seems that he has converted to sinus rhythm. However he continues to feel short of breath. No chest pain of anginal type. Review of Systems Review of Systems Cardiac- no angina, palpitations or syncopal episodes. Positive for leg swel ling. Positive for shortness of breath. Respiratory- positive for shortness of breath. Yes all other systems are reviewed and are negative Reports system reviewed and no additional complaints, except as documented Physical Exam Vital Signs: Last Vital Signs Temp 97.8 F 06/28/20 07:54 Pulse 96 06/28/20 10:06 Resp 20 06/28/20 07:54 BP 139/82 06/28/20 10:06 Pulse Ox 95 06/28/20 07:54 Body Mass Index 41.8 Comfortable, no distress No pallor, icterus or cyanosis HEENT -unremarkable JVD- normal Cardiac- normal heart sounds, no murmurs, gallops or rubs, normal PMI Respiratory-normal breath sounds bilaterally, no crackles, no wheeze Abdomen- soft, nontender Neuro- alert and oriented Lower extremities- 2+ edema bilateral Results Labs and Meds Result diagrams: 06/28/20 10:18 06/28/20 10:17 Lab results: Laboratory Results - last 24 hr 06/27/20 06/28/20 06/28/20 17:58 10:17 10:17 WBC RBC Hgb Hct MCV MCH MCHC RDW Plt Count MPV Immature Gran % (Auto) Neut % (Auto) Lymph % (Auto) [place] % (Auto) Eos % (Auto) Baso % (Auto) Lymph # (Auto) [place] # (Auto) Eos # (Auto) Baso # (Auto) Abs Immat Gran (auto) Absolute Neuts (auto) Absolute Nucleated RBC Nucleated RBC % (auto) Smear Tech's Comments Sodium 135 134 L Potassium 3.6 3.5 Chloride 98 97 Carbon Dioxide 23 26 Anion Gap 18 15 BUN 12 13 Creatinine 0.72 0.72 Estim Creat Clear Calc 185.8 185.8 Estimated GFR > 60 > 60 Random Glucose 126 H 126 H Calcium 8.3 L 8.3 L Magnesium 1.8 Troponin I High Sens 20.5 D 06/28/20 10:18 WBC 5.2 RBC 5.04 Hgb 16.4 Hct 48.6 MCV 96.4 MCH 32.5 MCHC 33.7 RDW 13.8 Plt Count 119 L MPV 10.1 Immature Gran % (Auto) 0.6 H Neut % (Auto) 67.9 Lymph % (Auto) 17.9 L [place] % (Auto) 8.9 Eos % (Auto) 3.7 Baso % (Auto) 1.0 Lymph # (Auto) 0.9 L [place] # (Auto) 0.5 Eos # (Auto) 0.2 Baso # (Auto) 0.1 Abs Immat Gran (auto) 0.03 Absolute Neuts (auto) 3.5 Absolute Nucleated RBC 0.000 Nucleated RBC % (auto) 0.0 Smear Tech's Comments Not Reportable Sodium Potassium Chloride Carbon Dioxide Anion Gap BUN Creatinine Estim Creat Clear Calc Estimated GFR Random Glucose Calcium Magnesium Troponin I High Sens Progress Note: A&P Assessment and plan (1) PAF (paroxysmal atrial fibrillation): Status: Acute (2) Acute diastolic CHF (congestive heart failure): Status: Acute Assessment and Plan: He has converted back to sinus rhythm. We can switch the diltiazem to sustained release preparation. Continue anticoagulation. Echocardiogram to be completed. Continue diuretics as he is still volume overloaded. Check electrolytes. We will follow. Fall Risk Details Current Medications: Current Medications Generic Name Dose Route Start Last Admin Trade Name Freq PRN Reason Stop Dose Admin Acetaminophen 650 mg 06/27/20 16:22 Acetaminophen 325 Mg Tablet PO Q6H PRN Pain, Mild (Pain Scale 1-3) Diltiazem HCl 240 mg 06/28/20 09:45 06/28/20 10:06 Diltiazem Hcl Cd 240 Mg Cap.Er.Deg PO 240 mg DAILY SHAINA Administration Protocol Docusate Sodium 100 mg 06/27/20 16:22 Docusate Sodium 100 Mg Capsule PO DAILY PRN Constipation Folic Acid 1 mg 06/28/20 09:00 06/28/20 08:00 Folic Acid 1 Mg Tablet PO 1 mg DAILY SHAINA Administration Furosemide 40 mg 06/29/20 09:00 Furosemide 40 Mg Tablet PO DAILY SHAINA Protocol Medication 1 each 06/28/20 09:00 No Benzodiazepines MISCELLANE DAILY SHAINA Morphine Sulfate 3 mg 06/27/20 15:26 06/27/20 16:57 Morphine Sulfate 4 Mg/Ml Cartridge IVPUSH 3 mg Q4H PRN Administration Shortness of Breath Ondansetron HCl 4 mg 06/27/20 16:22 Ondansetron Hcl 4 Mg/2 Ml Vial IVPUSH Q8H PRN Nausea and Vomiting Pharmacy Consult 1 each 06/27/20 08:49 Consult Rx Perform Med Rec MISCELLANE ONCE PRN Consult order Phenobarbital 60 mg 06/28/20 09:00 06/28/20 08:00 Phenobarbital 30 Mg Tablet PO 06/29/20 21:01 60 mg BID SHAINA Administration Phenobarbital 30 mg 06/30/20 09:00 Phenobarbital 30 Mg Tablet PO 07/01/20 21:01 BID SHAINA Phenobarbital 30 mg 07/02/20 09:00 Phenobarbital 30 Mg Tablet PO 07/03/20 09:01 DAILY SHAINA Rivaroxaban 20 mg 06/27/20 17:00 06/27/20 17:54 Rivaroxaban 20 Mg Tablet PO 20 mg Q24H SHAINA Administration Sodium Chloride 3 ml 06/27/20 16:22 06/28/20 08:00 0.9 % Sodium Chloride Flush 3 Ml Syringe IVFLUSH 3 ml QSHIFT SHAINA Administration Thiamine HCl 100 mg 06/28/20 09:00 06/28/20 08:00 Thiamine Hcl 100 Mg Tablet PO 100 mg DAILY SHAINA Administration Time Spent With Patient Time: Total time spent is greater than 50% in coordination of care (as documented) at patient's floor/unit and/or counseling patient: Time with patient: 15 - 24 minutes Procedures Abscess I/D Date of Service: 06/28/20
--- NOTE | 2020-06-28 13:51 | HO.PM.IMPN ---
Subjective Subjective Date of Service: 06/28/20 Interval History: patient complaining of persistent intermittent shortness of breath that wakes him up from sleep, he points to his neck and feels something is obstructing there. Patient denies fever chills, denies chest pain , denies palpitation. Review of Systems General no headache, no dizziness no fever chills. CVS no chest pain, no palpitation. Respiratory intermittent shortness of breath, no PND, no orthopnea. Gastrointestinal no nausea, no vomiting, no abdominal pain Physical Exam Vital Signs: Vital Signs: Last Vital Signs Temp 98.0 F 06/28/20 11:28 Pulse 89 06/28/20 11:28 Resp 18 06/28/20 11:28 BP 140/93 H 06/28/20 11:28 Pulse Ox 96 06/28/20 11:28 Body Mass Index 41.8 General patient resting comfortably in no acute distress. Neck obese, supple no JVD. CVS regular rate rhythm, Respiratory lungs clear to auscultation, no respiratory distress, no wheeze, no rhonchi. Gastrointestinal abdomen soft, nontender, bowel sounds audible, no no guarding , no rigidity. Extremities mild pitting edema. Neuro nonfocal Skin no rash Objective Data Current Medications Generic Name Dose Route Start Last Admin Trade Name Freq PRN Reason Stop Dose Admin Acetaminophen 650 mg 06/27/20 16:22 Acetaminophen 325 Mg Tablet PO Q6H PRN Pain, Mild (Pain Scale 1-3) Diltiazem HCl 240 mg 06/28/20 09:45 06/28/20 10:06 Diltiazem Hcl Cd 240 Mg Cap.Er.Deg PO 240 mg DAILY SHAINA Administration Protocol Docusate Sodium 100 mg 06/27/20 16:22 Docusate Sodium 100 Mg Capsule PO DAILY PRN Constipation Folic Acid 1 mg 06/28/20 09:00 06/28/20 08:00 Folic Acid 1 Mg Tablet PO 1 mg DAILY SHAINA Administration Furosemide 40 mg 06/29/20 09:00 Furosemide 40 Mg Tablet PO DAILY SHAINA Protocol Medication 1 each 06/28/20 09:00 No Benzodiazepines MISCELLANE DAILY SHAINA Morphine Sulfate 3 mg 06/27/20 15:26 06/27/20 16:57 Morphine Sulfate 4 Mg/Ml Cartridge IVPUSH 3 mg Q4H PRN Administration Shortness of Breath Ondansetron HCl 4 mg 06/27/20 16:22 Ondansetron Hcl 4 Mg/2 Ml Vial IVPUSH Q8H PRN Nausea and Vomiting Pharmacy Consult 1 each 06/27/20 08:49 Consult Rx Perform Med Rec MISCELLANE ONCE PRN Consult order Phenobarbital 60 mg 06/28/20 09:00 06/28/20 08:00 Phenobarbital 30 Mg Tablet PO 06/29/20 21:01 60 mg BID SHAINA Administration Phenobarbital 30 mg 06/30/20 09:00 Phenobarbital 30 Mg Tablet PO 07/01/20 21:01 BID SHAINA Phenobarbital 30 mg 07/02/20 09:00 Phenobarbital 30 Mg Tablet PO 07/03/20 09:01 DAILY SHAINA Rivaroxaban 20 mg 06/27/20 17:00 06/27/20 17:54 Rivaroxaban 20 Mg Tablet PO 20 mg Q24H SHAINA Administration Sodium Chloride 3 ml 06/27/20 16:22 06/28/20 08:00 0.9 % Sodium Chloride Flush 3 Ml Syringe IVFLUSH 3 ml QSHIFT SHAINA Administration Thiamine HCl 100 mg 06/28/20 09:00 06/28/20 08:00 Thiamine Hcl 100 Mg Tablet PO 100 mg DAILY SHAINA Administration Labs CBC & Chem 7: 06/28/20 10:18 06/28/20 10:17 Assessment and Plan (1) Acute diastolic CHF (congestive heart failure): Status: Acute (2) PAF (paroxysmal atrial fibrillation): Status: Acute (3) Acute dyspnea: Status: Acute (4) Atrial fibrillation, new onset: Status: Acute (5) Anxiety: Status: Acute (6) Alcohol use disorder: Status: Acute Assessment and Plan: this is a 45-year-old male with a history of hypertension who presents to the emergency department with intermittent episodes of dyspnea found to be in new onset atrial fibrillation new onset atrial fibrillation with rapid ventricular response - patient converted to normal sinus rhythm overnight will discontinue Cardizem drip, will place on Cardizem CD 240 mg by mouth daily, repeat EKG - echocardiogram showed preserved EF no valvular heart disease, mild grade 1 diastolic dysfunction, Cardio recommend to continue Xarelto, chads score of 1 for hypertension - mag 1.8, TSH normal acute CHF likely related to AFib with RVR improving dc IV Lasix and placed on by mouth Lasix due to persistent edema Shortness of breath patient complaining of intermittent shortness of breath that wakes him up from sleep likely due to obstructive sleep apnea and tracheomalacia or tracheal stenosis will obtain pulmonology consult, will need outpatient sleep study leg cramps stable electrolytes and magnesium, will use Tylenol alcohol dependence no evidence of alcohol withdrawal at this time, continue phenobarb protocol, continue thiamine and folate, care team eval prior to discharge tobacco dependence - smoking cessation advised continue NRT thrombocytopenia possibly related to alcohol, remains stable leukopenia resolved mild transaminitis likely related to alcohol use / fatty liver, patient asymptomatic strongly recommend to abstain from alcohol morbid obesity BMI 39.4 weight loss encouraged uncontrolled hypertension noncompliant with medication for several years, started on Cardizem CD follow blood pressure closely and adjust medications DVT prophylaxis- on Xarelto code status- full code
[2020-06-28] MEDS: Rivaroxaban 20 MG TABLET PO (16:05)
[2020-06-28 16:46] LABS: Anion Gap 13 (12-20); Blood Urea Nitrogen 16 mg/dL (9-16); Calcium 8.5 mg/dL (8.4-10.2); Carbon Dioxide 29 mmol/L (22-29); Chloride 97 mmol/L (96-108); Creatinine Clr Calc Pharmacy 185.8; Estimated Glomerular Filt Rate > 60; Glucose Random 83 mg/dL (60-115); Potassium 3.6 mmol/l (3.3-5.1); Sodium 135 mmol/L (135-145)
[2020-06-29 03:23] VITALS: BP 128/73; PULSE 81; RESP 18; TEMP 37.2; O2SAT 96
[2020-06-29 05:52] VITALS: BMI 41.3
[2020-06-29 07:41] VITALS: BP 155/89; PULSE 88; RESP 18; TEMP 36.4; O2SAT 97
[2020-06-29 08:30] VITALS: BP 155/89; PULSE 88
[2020-06-29] MEDS: Thiamine HCL 100 MG TABLET PO (08:30)
[2020-06-29] MEDS: Furosemide 40 MG TABLET PO (08:30)
[2020-06-29] MEDS: 0.9 % Sodium Chloride Flush 3 ML SYRINGE IVFLUSH (08:30)
[2020-06-29] MEDS: Folic Acid 1 MG TABLET PO (08:30)
[2020-06-29] MEDS: PHENobarbitaL 30 MG TABLET 60 MG PO (08:30)
[2020-06-29] MEDS: dilTIAZem HCL CD 240 MG CAP.ER.DEG PO (08:30)
[2020-06-29 09:35] VITALS: O2SAT 97
[2020-06-29 09:40] VITALS: O2SAT 95
--- NOTE | 2020-06-29 09:43 | PM.EVENT ---
Event Note Date of Service: 06/29/20 Event Note: I saw this patient for Pulmonary /Sleep consultation . Complete note is dictated . A: Gross Obesity GIANNI, severe . P: Patient Educated , will need Sleep Study JODY, will make arrangement as out pt. Position Therapy and Sleep Hygiene expalined . Needs to join a Weight management program .
--- NOTE | 2020-06-29 10:04 | PM.PNCARD ---
Subjective Subjective Interval history: He states that he feels better. Shortness of breath improved. Leg swelling is also improved. No angina or other cardiac symptoms. Review of Systems Review of Systems Cardiac- negative for angina, palpitations, dizzy spells or syncopal episodes. Shortness of breath is improved. Leg swelling is improved. Remainder of the 10 system review negative. Physical Exam Vital Signs: Last Vital Signs Temp 97.6 F 06/29/20 07:41 Pulse 88 06/29/20 08:30 Resp 18 06/29/20 07:41 BP 155/89 H 06/29/20 08:30 Pulse Ox 95 06/29/20 09:40 Body Mass Index 41.3 Comfortable, no distress No pallor, icterus or cyanosis HEENT -unremarkable JVD- normal Cardiac- normal heart sounds, no murmurs, gallops or rubs, normal PMI Respiratory-normal breath sounds bilaterally, no crackles, no wheeze Abdomen- soft, nontender Neuro- alert and oriented Lower extremities- 1+ edema bilateral Results Labs and Meds Result diagrams: 06/28/20 10:18 06/28/20 16:14 Lab results: Laboratory Results - last 24 hr 06/28/20 06/28/20 06/28/20 10:17 10:17 10:18 WBC 5.2 RBC 5.04 Hgb 16.4 Hct 48.6 MCV 96.4 MCH 32.5 MCHC 33.7 RDW 13.8 Plt Count 119 L MPV 10.1 Immature Gran % (Auto) 0.6 H Neut % (Auto) 67.9 Lymph % (Auto) 17.9 L [place] % (Auto) 8.9 Eos % (Auto) 3.7 Baso % (Auto) 1.0 Lymph # (Auto) 0.9 L [place] # (Auto) 0.5 Eos # (Auto) 0.2 Baso # (Auto) 0.1 Abs Immat Gran (auto) 0.03 Absolute Neuts (auto) 3.5 Absolute Nucleated RBC 0.000 Nucleated RBC % (auto) 0.0 Smear Tech's Comments Not Reportable Sodium 135 134 L Potassium 3.6 3.5 Chloride 98 97 Carbon Dioxide 23 26 Anion Gap 18 15 BUN 12 13 Creatinine 0.72 0.72 Estim Creat Clear Calc 185.8 185.8 Estimated GFR > 60 > 60 Random Glucose 126 H 126 H Calcium 8.3 L 8.3 L Magnesium 1.8 06/28/20 16:14 WBC RBC Hgb Hct MCV MCH MCHC RDW Plt Count MPV Immature Gran % (Auto) Neut % (Auto) Lymph % (Auto) [place] % (Auto) Eos % (Auto) Baso % (Auto) Lymph # (Auto) [place] # (Auto) Eos # (Auto) Baso # (Auto) Abs Immat Gran (auto) Absolute Neuts (auto) Absolute Nucleated RBC Nucleated RBC % (auto) Smear Tech's Comments Sodium 135 Potassium 3.6 Chloride 97 Carbon Dioxide 29 Anion Gap 13 BUN 16 Creatinine 0.72 Estim Creat Clear Calc 185.8 Estimated GFR > 60 Random Glucose 83 Calcium 8.5 Magnesium Progress Note: A&P Assessment and plan (1) PAF (paroxysmal atrial fibrillation): Status: Acute (2) Acute diastolic CHF (congestive heart failure): Status: Acute Assessment and Plan: He has converted back to sinus rhythm. Continue diltiazem. Continue anticoagulation; probably short-term. Oral diuretics. Discharge planning. Followup with . Fall Risk Details Current Medications: Current Medications Generic Name Dose Route Start Last Admin Trade Name Freq PRN Reason Stop Dose Admin Acetaminophen 650 mg 06/27/20 16:22 Acetaminophen 325 Mg Tablet PO Q6H PRN Pain, Mild (Pain Scale 1-3) Diltiazem HCl 240 mg 06/28/20 09:45 06/29/20 08:30 Diltiazem Hcl Cd 240 Mg Cap.Er.Deg PO 240 mg DAILY SHAINA Administration Protocol Docusate Sodium 100 mg 06/27/20 16:22 Docusate Sodium 100 Mg Capsule PO DAILY PRN Constipation Folic Acid 1 mg 06/28/20 09:00 06/29/20 08:30 Folic Acid 1 Mg Tablet PO 1 mg DAILY SHAINA Administration Furosemide 40 mg 06/29/20 09:00 06/29/20 08:30 Furosemide 40 Mg Tablet PO 40 mg DAILY SHAINA Administration Protocol Medication 1 each 06/28/20 09:00 No Benzodiazepines MISCELLANE DAILY SHAINA Morphine Sulfate 3 mg 06/27/20 15:26 06/27/20 16:57 Morphine Sulfate 4 Mg/Ml Cartridge IVPUSH 3 mg Q4H PRN Administration Shortness of Breath Ondansetron HCl 4 mg 06/27/20 16:22 Ondansetron Hcl 4 Mg/2 Ml Vial IVPUSH Q8H PRN Nausea and Vomiting Pharmacy Consult 1 each 06/27/20 08:49 Consult Rx Perform Med Rec MISCELLANE ONCE PRN Consult order Phenobarbital 60 mg 06/28/20 09:00 06/29/20 08:30 Phenobarbital 30 Mg Tablet PO 06/29/20 21:01 60 mg BID SHAINA Administration Phenobarbital 30 mg 06/30/20 09:00 Phenobarbital 30 Mg Tablet PO 07/01/20 21:01 BID SHAINA Phenobarbital 30 mg 07/02/20 09:00 Phenobarbital 30 Mg Tablet PO 07/03/20 09:01 DAILY SHIANA Rivaroxaban 20 mg 06/27/20 17:00 06/28/20 16:05 Rivaroxaban 20 Mg Tablet PO 20 mg Q24H SHAINA Administration Sodium Chloride 3 ml 06/27/20 16:22 06/29/20 08:30 0.9 % Sodium Chloride Flush 3 Ml Syringe IVFLUSH 3 ml QSHIFT SHAINA Administration Thiamine HCl 100 mg 06/28/20 09:00 06/29/20 08:30 Thiamine Hcl 100 Mg Tablet PO 100 mg DAILY SHAINA Administration Time Spent With Patient Time: Total time spent is greater than 50% in coordination of care (as documented) at patient's floor/unit and/or counseling patient: Time with patient: 15 - 24 minutes Procedures Abscess I/D Date of Service: 06/29/20
--- NOTE | 2020-06-29 10:11 | CONS_ITS ---
DATE OF SERVICE: 06/29/2020 HISTORY OF PRESENT ILLNESS: This 45-year-old gentleman was admitted on 06/27 mainly because of his history of shortness of breath for the last 1 or 2 weeks. At the time of admission in the emergency room, noted to have tachycardia and EKG showed atrial fibrillation with rapid ventricular response. He has been treated for this and is in regular sinus rhythm. The shortness of breath is described as mostly at night, making him wake up with gasping like feeling, has been going on for quite some time, but became more prominent in the last 2 weeks. He had no fever, chills, or chest pain at the onset of this breathing trouble. He knows very well that this happens when he lies down and wants to go to sleep. He wakes up and has to sit up to take some breath and breathing and then go back to sleep. During the daytime, he is mostly at home and does tend to be overly tired and sleepy, but he says that he can get through the day without falling asleep. Respectively, these symptoms are going on for quite some time. 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 He has a diagnosis of bronchial asthma, but it is not clear how it was diagnosed and has not used any specific medication for that. The patient has been a smoker, but quit since he was admitted. He also has history of moderate alcohol intake. REVIEW OF SYSTEMS: Otherwise is not remarkable except for his poor sleep at night, feeling tired in the morning, occasional cough. PHYSICAL EXAMINATION: GENERAL: A 45-year-old gentleman, is grossly obese. BMI of 39. His obesity is more prominent in his face and neck. NECK: Very obese. HEENT: Oropharynx is crowded. Mallampati scale 4. There is almost no opening, which is visible. LUNGS: Clear to auscultation. No wheezes or rhonchi are heard. CARDIAC: Sounds are somewhat distant, but rhythm regular. No murmurs or gallops. ABDOMEN: Obese, but soft and nontender. EXTREMITIES: No clubbing or varicosities. Peripheral pulses normal. CLINICAL IMPRESSION: I think this gentleman has all the physical features and history of severe obstructive sleep apnea. Paroxysmal atrial fibrillation is one of the manifestations of nontreated obstructive sleep apnea. Past history of smoking. RECOMMENDATIONS: I discussed with him in great length and he understands about obstructive sleep apnea. He would need a sleep study to be done as soon as possible. We will make a plan for his sleep study to be done at home and then start him on the treatment. The patient needs to join a weight reduction program. For the time being, I advised him to sleep in a recliner or in propped up head side of the bed. I given him instructions to avoid sleeping in supine position. He understands about his problem very well. One hour is feasible to discharge him, that is okay and we will work with him as outpatient. Thank you very much for asking me to see this patient. MD MARGARET Juan/YEIMI / [phone]
[2020-06-29 11:21] VITALS: BP 150/78; PULSE 72; RESP 18; TEMP 36.4; O2SAT 95
--- NOTE | 2020-06-29 11:31 | MHC.CM.PN ---
is expecting pt to be dcd today with no servceis
--- NOTE | 2020-06-29 11:52 | P.DS_ITS ---
DS: Providers Provider Date of admission: 06/27/20 10:23 Primary care physician: Unknown Physician Consults: 06/27/20 10:23 Consult to Cardiology Routine Consulting Provider: Davonte Tyler Reason for consultation: new afib rvr Has provider been notified: No 06/28/20 14:05 Consult to Pulmonology Routine Consulting Provider: Lisandro Anderson Reason for consultation: sob that wakes him from sleep,large neck DS: Diagnosis Discharge Diagnosis (1) Acute diastolic CHF (congestive heart failure): Status: Acute (2) Atrial fibrillation, new onset: Status: Acute (3) Obesity: Status: Acute (4) Alcohol dependence: Status: Acute (5) Tobacco use: Status: Acute DS: Medications Discharge Medications Home Medications: Previous Rx's Medication Instructions Recorded diltiazem HCl 240 mg PO DAILY #30 cap 06/29/20 furosemide 40 mg PO DAILY #30 tab 06/29/20 melatonin 3 mg PO BEDTIME PRN #30 cap 06/29/20 nicotine [Nicoderm CQ] 1 patch TRANSDERMAL Q24H #14 ea 06/29/20 rivaroxaban [Xarelto] 20 mg PO Q24H #30 tab 06/29/20 DS: Summary Hospital Course Hospital Course: HPI from the admission H&P: this is a 45-year-old male who presents to the emergency department with shortness of breath. Over the past 1-2 weeks he has had episodes of transient shortness of breath. This morning he woke at 05:00 with severe shortness of breath. This was associated with nausea, dry heaving and palpitations. His symptoms persisted longer than his previous episodes so he came to the emergency department for evaluation. On arrival he was noted to be tachycardic and EKG showed atrial fibrillation with rapid ventricular response. He was given a dose of IV Cardizem and then started on a Cardizem drip. Patient has no history of atrial fibrillation. His only known history is hypertension for which he stopped taking his valsartan many years ago. He has not seen his primary care physician in several years. His in March of this year and since that time he has been drinking daily increasing his tobacco use and has been out of work. Lab work revealed leukopenia, thrombocytopenia, mild elevation in LFTs. He was also noted to have bilateral lower extremity edema which she reports is been present for the past 3 weeks. BNP was 12 and chest x- ray showed no evidence of fluid overload. Inpatient admission was requested for management of new onset Atrial fibrillation. Hospital course Patient presented with atrial fibrillation with rapid ventricular response and symptoms of congestive heart failure. Patient was started on IV Cardizem drip and IV diuresis and quickly converted to sinus rhythm. He was also initiated on Xarelto per Cardiology recommendations. Over the course of his hospitalization he had significant improvement in his cardiac symptoms. He was transition from IV Cardizem to p.o. Cardizem 240 mg daily. He was transitioned to oral Lasix 40 mg daily and was continued on Xarelto which cardiology recommended for short-term. he will be sent home on 1 month supply of this and needs to follow up with the Cardiology Clinic within this time which he is aware. Patient's hospital course was complicated by shortness of breath. Pulmonary was consulted as suspect the patient have obstructive sleep apnea given his body habitus. Pulmonary saw the patient and recommended a short-term follow-up in the clinic to schedule a sleep study. Lastly patient was treated with phenobarbital to prevent alcohol withdrawal. At the time of discharge, patient's heart rate, respiratory status and withdrawal symptoms are all under control. He needs to follow up in the Cardiology Clinic with Dr. Tyler the pulmonary clinic with Dr. Turner He has been educated on complete cessation of alcohol and tobacco. . Time Spent with Patient Time attestation: Total time spent providing and/or coordinating discharge services: Physical Exam Vital Signs: Vital Signs: Last Vital Signs Temp 97.6 F 06/29/20 11:21 Pulse 72 06/29/20 11:21 Resp 18 06/29/20 11:21 BP 150/78 H 06/29/20 11:21 Pulse Ox 95 06/29/20 11:21 Body Mass Index 41.3 General - no acute distress, appears comfortable Cardiovascular - regular rate and rhythm, S1-S2 Lungs - normal respiratory effort, clear to auscultation bilaterally, no wheezing Abdomen - soft, nontender, no rebound regarding Extremities - no edema bilaterally Neuro - awake and alert, no focal deficits DS: Data Data Completed and Pending Labs on day of discharge: Laboratory Last Values WBC 5.2 X10*3/uL (4.8-10.8) 06/28/20 10:18 RBC 5.04 X10*6/uL (4.60-5.80) 06/28/20 10:18 Hgb 16.4 g/dl (14.0-18.0) 06/28/20 10:18 Hct 48.6 % (42-52) 06/28/20 10:18 MCV 96.4 fL (80-98) 06/28/20 10:18 MCH 32.5 pg (27.0-33.0) 06/28/20 10:18 MCHC 33.7 g/dl (31.0-36.0) 06/28/20 10:18 RDW 13.8 % (11.0-16.0) 06/28/20 10:18 Plt Count 119 X10*3/uL (160-400) L 06/28/20 10:18 MPV 10.1 fL (9.4-12.4) 06/28/20 10:18 Immature Gran % (Auto) 0.6 % (0.0-0.4) H 06/28/20 10:18 Neut % (Auto) 67.9 % (45-73) 06/28/20 10:18 Lymph % (Auto) 17.9 % (20-40) L 06/28/20 10:18 [place] % (Auto) 8.9 % (2-11) 06/28/20 10:18 Eos % (Auto) 3.7 % (0-4) 06/28/20 10:18 Baso % (Auto) 1.0 % (0-2) 06/28/20 10:18 Lymph # (Auto) 0.9 X10*3/uL (1.2-4.9) L 06/28/20 10:18 [place] # (Auto) 0.5 X10*3/uL (0.1-1.2) 06/28/20 10:18 Eos # (Auto) 0.2 X10*3/uL (0.0-0.4) 06/28/20 10:18 Baso # (Auto) 0.1 X10*3/uL (0.0-0.2) 06/28/20 10:18 Abs Immat Gran (auto) 0.03 X10*3/uL (0.00-0.03) 06/28/20 10:18 Absolute Neuts (auto) 3.5 X10*3/uL (2.0-8.3) 06/28/20 10:18 Absolute Nucleated RBC 0.000 X10*3/uL (0.0-0.012) 06/28/20 10:18 Nucleated RBC % (auto) 0.0 /100WBC (0.0-0.2) 06/28/20 10:18 Smear Tech's Comments Not Reportable 06/28/20 10:18 D-Dimer < 200 NG/ML 06/27/20 07:22 Sodium 135 mmol/L (135-145) 06/28/20 16:14 Potassium 3.6 mmol/l (3.3-5.1) 06/28/20 16:14 Chloride 97 mmol/L (96-108) 06/28/20 16:14 Carbon Dioxide 29 mmol/L (22-29) 06/28/20 16:14 Anion Gap 13 (12-20) 06/28/20 16:14 BUN 16 mg/dL (9-16) 06/28/20 16:14 Creatinine 0.72 mg/dL (0.5-1.4) 06/28/20 16:14 Estim Creat Clear Calc 185.8 06/28/20 16:14 Estimated GFR > 60 06/28/20 16:14 Random Glucose 83 mg/dL (60-115) 06/28/20 16:14 Calcium 8.5 mg/dL (8.4-10.2) 06/28/20 16:14 Magnesium 1.8 mg/dL (1.6-2.6) 06/28/20 10:17 Total Bilirubin 1.0 mg/dL (0.0-1.0) 06/27/20 07:21 Direct Bilirubin 0.6 mg/dL (0.0-0.5) H 06/27/20 07:21 AST 107 U/L (5-37) H 06/27/20 07:21 ALT 81 U/L (0-40) H 06/27/20 07:21 Alkaline Phosphatase 86 U/L (39-117) 06/27/20 07:21 Troponin I High Sens 20.5 ng/L (<3.5-35.0) D 06/27/20 17:58 B-Natriuretic Peptide 12 pg/mL (<100) 06/27/20 07:21 Total Protein 7.7 g/dL (6.5-8.0) 06/27/20 07:21 Albumin 3.6 g/dL (3.5-5.0) 06/27/20 07:21 Lipase 68 U/L (8-78) 06/27/20 07:21 TSH 2.63 mIU/mL (0.32-4.0) 06/27/20 07:21 Ethyl Alcohol 112 mg/dL 06/27/20 07:21 COVID-19 (CARL) Negative (Negative) 06/27/20 07:22 COVID-19 Clin Com See Note 06/27/20 07:22 Discharge Plan Discharge Patient Disposition: Home, Self-Care Referrals: Kanika Turner MD [Physician] - Davonte Tyler MD [Physician] - Physician,Unknown [Primary Care Provider] - Discharge Medications: New furosemide 40 mg Tablet 40 mg PO DAILY Qty: 30 RF: 0 diltiazem HCl 240 mg Capsule,Extended Release 24hr 240 mg PO DAILY Qty: 30 RF: 0 Xarelto 20 mg Tablet 20 mg PO Q24H Qty: 30 RF: 0 melatonin 3 mg capsule 3 mg PO BEDTIME PRN (Reason: sleep) Qty: 30 RF: 0 nicotine [Nicoderm CQ] 21 mg/24 hr patch 24 hour 1 patch transdermal Q24H Qty: 14 RF: 0 Discharge Orders: Discharge Order (Routine); Ordered 06/29/20 Ordered By: Kemar Mata Diet: advance to usual diet Activity on Discharge: As tolerated Visit Report Forms: Patient Portal Discharge page Care Plan Goals: To feel better and stay out of the hospital. To get work up for sleep apnea. To abstain from tobacco and alcohol Health Concerns: Tobacco use - do not smoke, use patch Alcohol use - abstain from alcohol use Possible sleep apnea - to folllow up with lung doctors to schedule sleep study A. Fib - take xarelto 20mg daily, cardizem 240mg daily, lasix 40mg daily; follow up with the heart doctor Plan of Treatment: Tobacco use - do not smoke, use patch Alcohol use - abstain from alcohol use Possible sleep apnea - to folllow up with lung doctors to schedule sleep study A. Fib - take xarelto 20mg daily, cardizem 240mg daily, lasix 40mg daily; follow up with the heart doctor
== END 2020-06-29 13:09 | disposition home or self-care (01) | DRG 291 ==
LOC: HO.ED 09:09 → HO.IMC 13:55
PROVIDERS: Physician Assistant Medical; Admitting Provider Hospitalist; Emergency Provider Emergency Medicine; Visit Provider Family Medicine
DX: I11.0 Hypertensive heart disease with heart failure (principal); I50.31 Acute diastolic (congestive) heart failure; F41.9 Anxiety disorder, unspecified; R74.01 Elevation of levels of liver transaminase levels; D72.819 Decreased white blood cell count, unspecified; F10.20 Alcohol dependence, uncomplicated; I48.0 Paroxysmal atrial fibrillation; D69.6 Thrombocytopenia, unspecified; G47.33 Obstructive sleep apnea (adult) (pediatric); E66.01 Morbid (severe) obesity due to excess calories; Z68.39 Body mass index [BMI] 39.0-39.9, adult; F17.210 Nicotine dependence, cigarettes, uncomplicated; Z71.6 Tobacco abuse counseling; Z20.828 Contact with and (suspected) exposure to other viral communicable diseases; Z79.01 Long term (current) use of anticoagulants; Z79.899 Other long term (current) drug therapy
CPT/HCPCS: 36415; 71045; 80048; 80076; 80320; 83690; 83735; 83880; 84443; 84484; 85025; 85379; 87635; 93005; 93306; 96365; 96366; 96375; 99285; 99291; J1940; J2060; J2270; J2560; Q9957

== ENCOUNTER 2021-05-13 16:55 | Inpatient (IN) | payer MEDICAID, SELFPAY ==
[2021-05-13] VITALS (7 sets, daily range): BP systolic 136–158; BP diastolic 73–94; PULSE 81–108; RESP 15–24; TEMP 37.1–37.7; O2SAT 94–99; BMI 33.9
--- NOTE | ~2021-05-13 | CT_ITS ---
EXAMINATION: CT ABDOMEN AND PELVIS WITH CONTRAST CLINICAL INFORMATION: Elevated lipase. COMPARISON: None TECHNIQUE: Multidetector volumetric images were obtained from the superior aspect of the liver through the pubic symphysis following administration 85 mL of Omnipaque 350 intravenous contrast. Sagittal and coronal reformatted images were obtained on the technologist's workstation. Oral contrast: No. This CT examination was performed using dose optimization techniques as appropriate, variously including the following: *Automated exposure control *Adjustment of mA and/or kV according to patient size (this includes techniques or standardized protocols for targeted exams where dose is matched to indication/reason for exam; i.e. extremities or head) *Use of iterative reconstruction technique DLP: 744 mGy-cm FINDINGS: LUNG BASES: The visualized lung bases are unremarkable. LIVER, GALLBLADDER, AND BILIARY TREE: The liver is normal in size, shape, and attenuation. No focal hepatic lesion or biliary ductal dilatation is present. Mild layering hyperdensity within the gallbladder, which could indicate sludge versus stones. Minimal wall enhancement without significant adjacent inflammatory change. PANCREAS: Mild inflammatory change within the retroperitoneum adjacent to the pancreatic head. Findings could indicate mild pancreatitis in the appropriate clinical setting. No pancreatic ductal dilatation or organized fluid collection/abscess formation. SPLEEN: Mildly enlarged measuring up to 14.1 cm in greatest axial dimension. ADRENAL GLANDS: Unremarkable. KIDNEYS AND URETERS: The kidneys are normal in size, shape, and attenuation. No hydronephrosis, hydroureter, or calculi seen. No perinephric stranding. BLADDER: Unremarkable. GASTROINTESTINAL TRACT: Sigmoid diverticulosis. Sigmoid wall thickening without adjacent inflammatory change, likely representing muscular hypertrophy. Very early diverticulitis cannot be excluded in the appropriate clinical setting. No small or large bowel obstruction. Unremarkable appendix. PERITONEAL CAVITY: Minimal mesenteric and retroperitoneal stranding, most prominent within the right paracolic gutter. No organized fluid collection/abscess formation. No intra-abdominal free air. ABDOMINAL WALL: Periumbilical hernia containing fat and mesenteric vessels with a neck measuring up to 1.9 cm. No associated bowel loops. LYMPH NODES: No significant lymphadenopathy. VASCULAR: Unremarkable. PELVIC VISCERA: The prostate and seminal vesicles are unremarkable. OSSEOUS STRUCTURES: Chronic compression deformity of L1 as described on the prior lumbar spine radiographs dated 07/23/2008. No concerning lytic or blastic osseous lesion. CT/CT abdomen pelvis w con IMPRESSION: 1. Mild inflammatory change/stranding in the retroperitoneum adjacent to the pancreatic head. Additional mesenteric and retroperitoneal stranding, most prominent within the right paracolic gutter. Findings could indicate mild pancreatitis in the appropriate clinical setting. No pancreatic parenchymal lesion, biliary ductal dilatation, or fluid collection/abscess formation. 2. Sigmoid diverticulosis. Circumferential sigmoid wall thickening without adjacent inflammatory change. Findings could represent muscular hypertrophy. Very early diverticulitis cannot be excluded in the appropriate clinical setting. No small or large bowel obstruction. Unremarkable appendix. 3. No intra-abdominal free air or free fluid. No intra-abdominal mass or organized fluid collection/abscess formation. 4. Mild splenomegaly. 5. Cholelithiasis without evidence of acute cholecystitis. No intrahepatic or extrahepatic biliary ductal dilatation.
--- NOTE | ~2021-05-13 | XR_ITS ---
EXAMINATION: XR CHEST CLINICAL INFORMATION: Shortness of breath. COMPARISON: Chest radiograph dated from 06/27/2020. TECHNIQUE: 2 views of the chest were obtained. FINDINGS: Normal appearance of the cardiomediastinal silhouette. Mild asymmetric elevation of the right hemidiaphragm. There are asymmetric interstitial opacities in the medial aspect of the right lower lobe. Otherwise, lungs are clear. No pleural effusions or pneumothorax. No acute osseous abnormalities. XR/XR chest 2V IMPRESSION: Asymmetric opacities in the medial aspect of the right lung base could be related with bronchovascular crowding and subsegmental atelectases in the setting of slight rotation of the patient and elevation of the right hemidiaphragm. However, aspiration and pneumonia are difficult to exclude. Correlate clinically and if indicated follow-up to ensure resolution.
--- NOTE | 2021-05-13 17:11 | ECG_ITS ---
Test Reason : DYSPENA Blood Pressure : / mmHG Vent. Rate : 094 BPM Atrial Rate : 094 BPM P-R Int : 146 ms QRS Dur : 096 ms QT Int : 400 ms P-R-T Axes : 041 024 032 degrees QTc Int : 500 ms Normal sinus rhythm Possible Left atrial enlargement T wave abnormality, consider anterior ischemia Prolonged QT Abnormal ECG When compared with ECG of 27-JUN-2020 23:47, T wave inversion now evident in Anterior leads QT has lengthened Referred By: Rufus Cunningham Electronically Signed By:MANI JENKINS
--- NOTE | 2021-05-13 17:16 | ED_ITS ---
HPI - General Adult General Chief complaint: General Medical Stated complaint: diff breathing, chills, diarrhea Time Seen by Provider: 05/13/21 17:03 Source: patient Mode of arrival: ambulatory Limitations: no limitations History of Present Illness HPI narrative: 46-year-old male presents emergency department very anxious. Patient states he quit drinking approximately 30-40 days ago. He states he has cirrhosis. He keeps telling me that back in November he was here his last visit to the emergency department was and June of last year. Patient states he did get vaccinated for COVID in November as well. He states he has chills body aches. Patient was found to be in AFib with RVR and question of CHF on his previous visit. Patient states he feels short of breath and has chills he denies cough nausea vomiting or diarrhea. Patient is post be on diltiazem furosemide and a blood thinner but he has not been taking his medications. Related Data Previous Rx's Medication Instructions Recorded diltiazem HCl 240 mg 240 mg PO DAILY #30 cap 06/29/20 capsule,extended release 24 hr furosemide 40 mg tablet 40 mg PO DAILY #30 tab 06/29/20 melatonin 3 mg capsule 3 mg PO BEDTIME PRN #30 cap 06/29/20 nicotine 21 mg/24 hr daily 1 patch TRANSDERMAL Q24H #14 ea 06/29/20 transdermal patch (Nicoderm CQ) rivaroxaban 20 mg tablet (Xarelto) 20 mg PO Q24H #30 tab 06/29/20 Allergies Allergy/AdvReac Type Severity Reaction Status Date / Time No Known Allergies Allergy Verified 06/27/20 06:49 [No Known Allergies*] Review of Systems Review of Systems: Review of systems: General: chills Patient denies any fever recent illness or falls Musculoskeletal: Denies back pain or body aches or other injuries HEENT: denies headache, runny nose, ear pain Respiratory: shortness of breath, denies cough Cardiovascular: no chest pain or palpitations : denies dysuria, frequency Abdomen: diarrhea nausea vomiting denies abdominal pain Extremities: no swelling, no pain Skin: no diaphoresis Yes all other systems are reviewed and are negative PMFSH Past Medical History Medical History Alcohol use disorder Asthma HTN (hypertension) Tobacco dependence Surgical History History of ankle surgery Family History Family History Mother Colon cancer Diabetes Social History Social History Household Members: None Housing: House Alcohol intake: current Alcohol intake frequency: former alcohol drinker Alcohol type: beer Patient Tobacco Use Status: Current someday Tobacco user Cigarette Packs Per Day: 1 Smoked in Last 30 Days: Yes Use of substances other than those prescribed or required for medical reasons: No Substance Use Type: Marijuana Advance Directives: No Advance Directives Information Provided: No service: No Physical Exam Vital Signs: Vital Signs: Last Vital Signs Temp 98.9 F 05/13/21 20:00 Pulse 84 05/13/21 20:00 Resp 16 05/13/21 20:00 BP 137/82 05/13/21 20:00 Pulse Ox 99 05/13/21 20:00 Body Mass Index 33.9 General: Shaky anxious well-nourished in mild signs of distress HEENT: Normocephalic atraumatic Neck: No signs of JVD, no masses no tenderness or lymphadenopathy Cardiovascular: Tachycardia slightly irregular Respiratory: Clear to auscultation bilaterally Abdomen: Soft nontender no masses. Extremities: Normal pedal pulses no signs of edema Skin: Dry warm no rashes Back: No tenderness full ROM Medical Decision Making MDM Narrative Medical decision making narrative: Non complaint 46-year-old male who states he has been drinking though he is acting very anxious that could be in withdrawals that he is not tachycardic or hypertensive. Patient looks very anxious at this time I will give some Ativan will give fluids I will work him up for alcohol- related illness including pneumonia. 175 Ammonia is minimally elevated I will give a dose of lactulose. Patient stated that he has not drank for almost a month alcohol does show tiny amount of 25 likely the reason for the hyperammonemia with his liver failure. Patient educated on the need to quit drinking. Patient likely admission. Patient has lactic acidosis 3.8 does not meet severe sepsis criteria everting of 30 cc/kg he would get over 4 L of fluid. I do not think the patient tolerate that much fluid. I will give 3 L. His blood pressure and vitals are otherwise normal. He does not have fever think this is related to dehydration alcohol abuse and withdrawal. 2001 CT shows pancreatitis. Patient has recieved 3 liters of fluid. I will give a fourth vitals remain stable. Lab Data Result diagrams: 05/13/21 17:22 05/13/21 17:22 Labs: Lab Results 05/13/21 05/13/21 05/13/21 Range/Units 17:16 17:22 17:22 WBC 8.9 (4.8-10.8) X10*3/uL RBC 4.48 L (4.60-5.80) X10*6/uL Hgb 14.7 (14.0-18.0) g/dl Hct 41.7 L (42-52) % MCV 93.1 (80-98) fL MCH 32.8 (27.0-33.0) pg MCHC 35.3 (31.0-36.0) g/dl RDW 13.4 (11.0-16.0) % Plt Count 105 L (160-400) X10*3/uL MPV 10.4 (9.4-12.4) fL Immature Gran % (Auto) 0.3 (0.0-0.4) % Neut % (Auto) 76.8 H (45-73) % Lymph % (Auto) 13.3 L (20-40) % Story % (Auto) 8.7 (2-11) % Eos % (Auto) 0.1 (0-4) % Baso % (Auto) 0.8 (0-2) % Lymph # (Auto) 1.2 (1.2-4.9) X10*3/uL Story # (Auto) 0.8 (0.1-1.2) X10*3/uL Eos # (Auto) 0.0 (0.0-0.4) X10*3/uL Baso # (Auto) 0.1 (0.0-0.2) X10*3/uL Abs Immat Gran (auto) 0.03 (0.00-0.03) X10*3/uL Absolute Neuts (auto) 6.8 (2.0-8.3) X10*3/uL Absolute Nucleated RBC 0.000 (0.0-0.012) X10*3/uL Nucleated RBC % (auto) 0.0 (0.0-0.2) /100WBC Smear Tech's Comments VERIFIED Sodium 137 (135-145) mmol/L Potassium 3.2 L (3.3-5.1) mmol/L Chloride 105 (96-108) mmol/L Carbon Dioxide 17 L (22-29) mmol/L Anion Gap 18 (12-20) BUN 3 L D (9-16) mg/dL Creatinine 0.62 (0.5-1.4) mg/dL Estim Creat Clear Calc 191.4 Estimated GFR > 60 Random Glucose 91 (60-115) mg/dL Lactic Acid 3.8 H* (0.5-2.0) mmol/L Calcium 9.3 D (8.4-10.2) mg/dL Total Bilirubin 3.2 H (0.0-1.0) mg/dL Direct Bilirubin 1.3 H (0.0-0.5) mg/dL AST 58 H (5-37) U/L ALT 28 (0-40) U/L Alkaline Phosphatase 92 (39-117) U/L Ammonia (13-55) umol/L B-Natriuretic Peptide (<100) pg/mL Total Protein 9.2 H (6.5-8.0) g/dL Albumin 3.1 L (3.5-5.0) g/dL Lipase 83 H (8-78) U/L Urine Color Urine Appearance Urine pH (5.0-8.0) Ur Specific [place] (1.005-1.025) Urine Protein (NEG-TRACE) MG/DL Urine Glucose (UA) (NEG) MG/DL Urine Ketones (NEG) MG/DL Urine Blood (NEG) Urine Nitrite (NEG) Ur Leukocyte Esterase (NEG) Urine RBC (0) /HPF Urine WBC (0-4) /HPF Ur Squamous Epith Cells /LPF Urine Bacteria /LPF Ethyl Alcohol mg/dL COVID-19 (CARL) (Negative) COVID-19 Clin Com 05/13/21 05/13/21 05/13/21 Range/Units 17:22 17:23 17:23 WBC (4.8-10.8) X10*3/uL RBC (4.60-5.80) X10*6/uL Hgb (14.0-18.0) g/dl Hct (42-52) % MCV (80-98) fL MCH (27.0-33.0) pg MCHC (31.0-36.0) g/dl RDW (11.0-16.0) % Plt Count (160-400) X10*3/uL MPV (9.4-12.4) fL Immature Gran % (Auto) (0.0-0.4) % Neut % (Auto) (45-73) % Lymph % (Auto) (20-40) % Story % (Auto) (2-11) % Eos % (Auto) (0-4) % Baso % (Auto) (0-2) % Lymph # (Auto) (1.2-4.9) X10*3/uL Story # (Auto) (0.1-1.2) X10*3/uL Eos # (Auto) (0.0-0.4) X10*3/uL Baso # (Auto) (0.0-0.2) X10*3/uL Abs Immat Gran (auto) (0.00-0.03) X10*3/uL Absolute Neuts (auto) (2.0-8.3) X10*3/uL Absolute Nucleated RBC (0.0-0.012) X10*3/uL Nucleated RBC % (auto) (0.0-0.2) /100WBC Smear Tech's Comments Sodium (135-145) mmol/L Potassium (3.3-5.1) mmol/L Chloride (96-108) mmol/L Carbon Dioxide (22-29) mmol/L Anion Gap (12-20) BUN (9-16) mg/dL Creatinine (0.5-1.4) mg/dL Estim Creat Clear Calc Estimated GFR Random Glucose (60-115) mg/dL Lactic Acid (0.5-2.0) mmol/L Calcium (8.4-10.2) mg/dL Total Bilirubin (0.0-1.0) mg/dL Direct Bilirubin (0.0-0.5) mg/dL AST (5-37) U/L ALT (0-40) U/L Alkaline Phosphatase (39-117) U/L Ammonia 66 H (13-55) umol/L B-Natriuretic Peptide 60 (<100) pg/mL Total Protein (6.5-8.0) g/dL Albumin (3.5-5.0) g/dL Lipase (8-78) U/L Urine Color Urine Appearance Urine pH (5.0-8.0) Ur Specific [place] (1.005-1.025) Urine Protein (NEG-TRACE) MG/DL Urine Glucose (UA) (NEG) MG/DL Urine Ketones (NEG) MG/DL Urine Blood (NEG) Urine Nitrite (NEG) Ur Leukocyte Esterase (NEG) Urine RBC (0) /HPF Urine WBC (0-4) /HPF Ur Squamous Epith Cells /LPF Urine Bacteria /LPF Ethyl Alcohol 25 mg/dL COVID-19 (CARL) (Negative) COVID-19 Clin Com 05/13/21 05/13/21 Range/Units 17:24 19:49 WBC (4.8-10.8) X10*3/uL RBC (4.60-5.80) X10*6/uL Hgb (14.0-18.0) g/dl Hct (42-52) % MCV (80-98) fL MCH (27.0-33.0) pg MCHC (31.0-36.0) g/dl RDW (11.0-16.0) % Plt Count (160-400) X10*3/uL MPV (9.4-12.4) fL Immature Gran % (Auto) (0.0-0.4) % Neut % (Auto) (45-73) % Lymph % (Auto) (20-40) % Story % (Auto) (2-11) % Eos % (Auto) (0-4) % Baso % (Auto) (0-2) % Lymph # (Auto) (1.2-4.9) X10*3/uL Story # (Auto) (0.1-1.2) X10*3/uL Eos # (Auto) (0.0-0.4) X10*3/uL Baso # (Auto) (0.0-0.2) X10*3/uL Abs Immat Gran (auto) (0.00-0.03) X10*3/uL Absolute Neuts (auto) (2.0-8.3) X10*3/uL Absolute Nucleated RBC (0.0-0.012) X10*3/uL Nucleated RBC % (auto) (0.0-0.2) /100WBC Smear Tech's Comments Sodium (135-145) mmol/L Potassium (3.3-5.1) mmol/L Chloride (96-108) mmol/L Carbon Dioxide (22-29) mmol/L Anion Gap (12-20) BUN (9-16) mg/dL Creatinine (0.5-1.4) mg/dL Estim Creat Clear Calc Estimated GFR Random Glucose (60-115) mg/dL Lactic Acid (0.5-2.0) mmol/L Calcium (8.4-10.2) mg/dL Total Bilirubin (0.0-1.0) mg/dL Direct Bilirubin (0.0-0.5) mg/dL AST (5-37) U/L ALT (0-40) U/L Alkaline Phosphatase (39-117) U/L Ammonia (13-55) umol/L B-Natriuretic Peptide (<100) pg/mL Total Protein (6.5-8.0) g/dL Albumin (3.5-5.0) g/dL Lipase (8-78) U/L Urine Color YELLOW Urine Appearance CLEAR Urine pH 7.5 (5.0-8.0) Ur Specific [place] <= 1.005 (1.005-1.025) Urine Protein 1+ H (NEG-TRACE) MG/DL Urine Glucose (UA) NEG (NEG) MG/DL Urine Ketones NEG (NEG) MG/DL Urine Blood NEG (NEG) Urine Nitrite NEG (NEG) Ur Leukocyte Esterase NEG (NEG) Urine RBC 0 (0) /HPF Urine WBC 0 (0-4) /HPF Ur Squamous Epith Cells NONE /LPF Urine Bacteria TRACE /LPF Ethyl Alcohol mg/dL COVID-19 (CARL) Negative (Negative) COVID-19 Clin Com See Note Imaging Data Chest x-ray: Attestation: I personally reviewed and interpreted this imaging study as follows: My impression: Improved from previous XR vascular congestion is improved. Radiologist's impression: ? pneumonia ECG Data Attestation: I personally reviewed and interpreted this ECG as follows: Prior ECG tracings: available for review Interpretation: Rate 94 nsr normal intervals no signs of ischemia. Afib has resolved. Critical Care Time Critical Care Time Critical Care Time: Yes Total Critical Care Time: 45 Attestation: Patient with lactic acidosis abnormal vitals on arrival found to have pancreatitis patient does not show signs of alcohol withdrawal heart rate and blood pressures remained stable throughout entire visit. Patient has lactic acidosis x-ray has signs concerning for pneumonia COVID swab was negative patient will be admitted to the hospitalist service. Discharge Plan Discharge Clinical Impression: Alcohol use disorder, Acute pancreatitis, Diarrhea, Chills, Alcohol abuse, Anxiety, Acidosis, lactic, Pneumonia Prescriptions: No Action furosemide 40 mg Tablet 40 mg PO DAILY Qty: 30 RF: 0 diltiazem HCl 240 mg Capsule,Extended Release 24hr 240 mg PO DAILY Qty: 30 RF: 0 Xarelto 20 mg Tablet 20 mg PO Q24H Qty: 30 RF: 0 melatonin 3 mg capsule 3 mg PO BEDTIME PRN (Reason: sleep) Qty: 30 RF: 0 nicotine [Nicoderm CQ] 21 mg/24 hr patch 24 hour 1 patch transdermal Q24H Qty: 14 RF: 0
[2021-05-13] MEDS: 0.9 % Sodium Chloride 500 ML 999 ML IV ×5 (17:25→21:50)
[2021-05-13 17:43] LABS: Ammonia 66 umol/L (13-55)
[2021-05-13 17:50] LABS: Hematocrit 41.7 % (42-52); Hemoglobin 14.7 g/dl (14.0-18.0); MANUAL DIFF FLAG SCAN; Mean Corpuscular HGB Conc 35.3 g/dl (31.0-36.0); Mean Corpuscular Hemoglobin 32.8 pg (27.0-33.0); Mean Corpuscular Volume 93.1 fL (80-98); PLT CLUMP 1; Red Blood Count 4.48 X10*6/uL (4.60-5.80); Red Cell Distribution Width 13.4 % (11.0-16.0); SCAN SMEAR FLAG 1
[2021-05-13 17:52] LABS: Basophils Absolute Auto 0.1 X10*3/uL (0.0-0.2); Basophils Percent Auto 0.8 % (0-2); Eosinophils Percent Auto 0.1 % (0-4); Imm Gran Abs Auto 0.03 X10*3/uL (0.00-0.03); Imm Gran Pct Auto 0.3 % (0.0-0.4); Lymphocytes Absolute Auto 1.2 X10*3/uL (1.2-4.9); Lymphocytes Percent Auto 13.3 % (20-40); Mean Platelet Volume 10.4 fL (9.4-12.4); Monocytes Absolute Auto 0.8 X10*3/uL (0.1-1.2); Monocytes Percent Auto 8.7 % (2-11); Neutrophils Absolute Auto 6.8 X10*3/uL (2.0-8.3); Neutrophils Percent Auto 76.8 % (45-73); Platelet Count 105 X10*3/uL (160-400); White Blood Count 8.9 X10*3/uL (4.8-10.8)
[2021-05-13 17:54] LABS: Ethanol 25 mg/dL
[2021-05-13 17:58] LABS: COVID-19 Test Negative (Negative); IDNOW Serial# 9DD0AD1C
[2021-05-13 18:05] LABS: Alanine Aminotransferase 28 U/L (0-40); Albumin Level 3.1 g/dL (3.5-5.0); Alkaline Phosphatase 92 U/L (39-117); Anion Gap 18 (12-20); Aspartate Amino Transferase 58 U/L (5-37); Bilirubin Direct 1.3 mg/dL (0.0-0.5); Bilirubin Total 3.2 mg/dL (0.0-1.0); Blood Urea Nitrogen 3 mg/dL (9-16); Calcium 9.3 mg/dL (8.4-10.2); Carbon Dioxide 17 mmol/L (22-29); Chloride 105 mmol/L (96-108); Creatinine Clr Calc Pharmacy 191.4; Estimated Glomerular Filt Rate > 60; Glucose Random 91 mg/dL (60-115); Lipase 83 U/L (8-78); Potassium 3.2 mmol/L (3.3-5.1); SLIDE REVIEW VERIFIED; Sodium 137 mmol/L (135-145); Total Protein 9.2 g/dL (6.5-8.0)
[2021-05-13 18:11] LABS: Lactic Acid 3.8 mmol/L (0.5-2.0)
[2021-05-13 18:26] LABS: B Type Natriuretic Peptide 60 pg/mL (<100)
[2021-05-13] MEDS: iohexoL 350 MG/ML 100 ML INFUS..BTL IV (19:10)
--- NOTE | 2021-05-13 19:15 | PC.NURSE ---
pt returned from ct. ivf reconnected . pt is anxiouse shivering temp 99.6.
[2021-05-13] MEDS: Lactulose 20 GM/30 ML SOLUTION PO (19:32)
[2021-05-13] MEDS: LORazepam 1 MG TABLET PO ×2 (19:32→22:16)
[2021-05-13 19:42] LABS: Reflex Lactate? Lactic Acid Added
[2021-05-13 19:56] LABS: Appearance Urine CLEAR; Color Urine YELLOW; Glucose Urine UA NEG (NEG); Leukocyte Esterase Urine NEG (NEG); Nitrite Urine NEG (NEG); PH 7.5 (5.0-8.0); Specific Gravity - Urine <= 1.005 (1.005-1.025); UACC Culture Trigger NO; Urine Blood NEG (NEG); Urine Ketones NEG (NEG); Urine Protein 1+ MG/DL (NEG-TRACE)
[2021-05-13 20:07] LABS: Bacteria Urine TRACE /LPF; RBC Urine 0 /HPF (0); WBC Urine 0 /HPF (0-4)
--- NOTE | 2021-05-13 20:13 | PC.NURSE ---
PATIENT LACTIC ACID AND 2 ND SET BLOOD CULTURE WAS DRAWN BY THIS PCT .
[2021-05-13 20:32] LABS: ~Lactic Acid-LAB USE ONLY 1.9 mmol/L (0.5-2.0)
[2021-05-13 20:36] LABS: Amphetamine Screen Urine Not Detected (Not Detect); Barbiturates, Urine POSITIVE (Not Detect); Benzodiazepines Screen Urine Not Detected (Not Detect); Cannabinoid Screen Urine Not Detected (Not Detect); Cocaine Screen Urine Not Detected (Not Detect); Fentanyl, urine POSITIVE (Not Detect); Opiate Screen Urine Not Detected (Not Detect); Phencyclidine Screen Urine Not Detected (Not Detect)
[2021-05-13] MEDS: Piperacillin Sodium/Tazobactam 4.5 GM in 0.9 % Sodium Chloride 100 ML IV (21:43)
--- NOTE | 2021-05-13 22:21 | PM.IMHP ---
History of Present Illness Date of Service: 05/13/21 46 year old male with history of chronic alcohol dependency, history of atrial fibrillation, history of heart failure related to AFib, obesity. He presents to the emergency room today with a constellation of complaining. He states that he woke up this morning sob, diarrhea and chills. He was very anxious in ED with no evidence of respiratory distress, he apparently has not been taking his meds for months. While he told ED Doctor that he hasn't drank in more than a month, he told he told me he drank just 8 ounces 2 days, ago. Initial work up showed K of 3.2, lactic 3. 8, repeat normal, bicab of 17, lipase 83, Utox is positive for Fentanyl and Barbiturates, he denies ilicit drug use and opiod and barbiturate are not part of his meds. Covid is negative. CT of abdomen shows some inflamatory changes around the pancreas--he otherwise looks comfortabl othan statin he feels anxious and wants ativan Review of Systems Review of Systems: Gen: no fever, shakes Resp: + sob, -cough CV: no ches paint, no NUNEZ, no leg edema GI: No n/v, no abd pain Neuro: No confusion Psych: anxious Yes all other systems are reviewed and are negative [facility] Medical History Afib Alcohol dependence Alcohol use disorder Asthma HTN (hypertension) Obesity Tobacco dependence Family History Mother Colon cancer Diabetes Pertinent family history: . Surgical History History of ankle surgery Social History Household Members: Family Housing: House Do you presently have visiting nurse or other home services: No Alcohol intake: current Alcohol intake frequency: former alcohol drinker Alcohol type: beer Patient Tobacco Use Status: Current someday Tobacco user Tobacco use type: Cigarette Cigarette Packs Per Day: 1 e-Cigarette/Vaping Use: Never Used Substance Use Type: Marijuana service: No Meds Allergies Allergy/AdvReac Type Severity Reaction Status Date / Time No Known Allergies Allergy Verified 06/27/20 06:49 [No Known Allergies*] Active Medications: Current Medications Lorazepam (Lorazepam 1 Mg Tablet) 1 mg PO Q4H SHAINA; Taper Stop: 05/17/21 20:14 Last Admin: 05/13/21 22:16 Dose: 1 mg Documented by: Lorazepam (Lorazepam 1 Mg Tablet) 1 mg PO Q4H PRN PRN Reason: Breakthrough alcohol withdrawa Stop: 05/17/21 18:10 Home Medications Medication Instructions Recorded Confirmed Last Taken Type folic acid 1 mg tablet 1 tab PO DAILY 05/14/21 05/14/21 Unknown History multivitamin with folic acid 400 1 tab PO DAILY 05/14/21 05/14/21 Unknown History mcg tablet (Daily-Carissa (with folic acid)) thiamine HCl (vitamin B1) 100 mg 1 tab PO DAILY 05/14/21 05/14/21 Unknown History tablet Physical Exam Vital Signs and Narrative: Vital Signs: Last Vital Signs Temp 98.9 F 05/13/21 20:00 Pulse 82 05/13/21 22:12 Resp 22 H 05/13/21 22:12 BP 145/90 H 05/13/21 22:12 Pulse Ox 97 05/13/21 22:12 Body Mass Index 33.9 Constitutional Awake and Alert, No apparent distress Heent anicteric Neck Supple, No lymphadenopathy Cardiovascular RRR, No M/R/G, S1 S2, No S3 S4, No pedal edema Respiratory Lungs clear, No respiratory distress Gastrointestinal Non tender, Non-distended Skin No rash Neurological Alert & oriented x3 Psychological Appropriate affect Results Labs CBC and Chem 7: 05/13/21 17:22 05/14/21 08:39 Labs: Laboratory Results - last 24 hr 05/13/21 05/13/21 05/13/21 17:16 17:22 17:22 MCV 93.1 MCH 32.8 MCHC 35.3 RDW 13.4 Plt Count 105 L MPV 10.4 Immature Gran % (Auto) 0.3 Neut % (Auto) 76.8 H Lymph % (Auto) 13.3 L [place] % (Auto) 8.7 Eos % (Auto) 0.1 Baso % (Auto) 0.8 Lymph # (Auto) 1.2 [place] # (Auto) 0.8 Eos # (Auto) 0.0 Baso # (Auto) 0.1 Abs Immat Gran (auto) 0.03 Absolute Neuts (auto) 6.8 Absolute Nucleated RBC 0.000 Nucleated RBC % (auto) 0.0 Smear Tech's Comments VERIFIED Anion Gap 18 Estim Creat Clear Calc 191.4 Estimated GFR > 60 Random Glucose 91 Lactic Acid 3.8 H* Lactic Acid Fup @ 2Hr Calcium 9.3 D Total Bilirubin 3.2 H Direct Bilirubin 1.3 H AST 58 H ALT 28 Alkaline Phosphatase 92 Ammonia B-Natriuretic Peptide Total Protein 9.2 H Albumin 3.1 L Lipase 83 H Urine Color Urine Appearance Urine pH Ur Specific [place] Urine Protein Urine Glucose (UA) Urine Ketones Urine Blood Urine Nitrite Ur Leukocyte Esterase Urine RBC Urine WBC Ur Squamous Epith Cells Urine Bacteria Urine Opiates Screen Urine Fentanyl Screen Ur Barbiturates Screen Ur Phencyclidine Scrn Ur Amphetamines Screen U Benzodiazepines Scrn Urine Cocaine Screen U Marijuana (THC) Screen Ethyl Alcohol COVID-19 (CARL) [employer] 05/13/21 05/13/21 05/13/21 17:22 17:23 17:23 MCV MCH MCHC RDW Plt Count MPV Immature Gran % (Auto) Neut % (Auto) Lymph % (Auto) [place] % (Auto) Eos % (Auto) Baso % (Auto) Lymph # (Auto) [place] # (Auto) Eos # (Auto) Baso # (Auto) Abs Immat Gran (auto) Absolute Neuts (auto) Absolute Nucleated RBC Nucleated RBC % (auto) Smear Tech's Comments Anion Gap Estim Creat Clear Calc Estimated GFR Random Glucose Lactic Acid Lactic Acid Fup @ 2Hr Calcium Total Bilirubin Direct Bilirubin AST ALT Alkaline Phosphatase Ammonia 66 H B-Natriuretic Peptide 60 Total Protein Albumin Lipase Urine Color Urine Appearance Urine pH Ur Specific [place] Urine Protein Urine Glucose (UA) Urine Ketones Urine Blood Urine Nitrite Ur Leukocyte Esterase Urine RBC Urine WBC Ur Squamous Epith Cells Urine Bacteria Urine Opiates Screen Urine Fentanyl Screen Ur Barbiturates Screen Ur Phencyclidine Scrn Ur Amphetamines Screen U Benzodiazepines Scrn Urine Cocaine Screen U Marijuana (THC) Screen Ethyl Alcohol 25 COVID-19 (CARL) COVID-19 [employer] 05/13/21 05/13/21 05/13/21 17:24 19:49 20:10 MCV MCH MCHC RDW Plt Count MPV Immature Gran % (Auto) Neut % (Auto) Lymph % (Auto) [place] % (Auto) Eos % (Auto) Baso % (Auto) Lymph # (Auto) [place] # (Auto) Eos # (Auto) Baso # (Auto) Abs Immat Gran (auto) Absolute Neuts (auto) Absolute Nucleated RBC Nucleated RBC % (auto) Smear Tech's Comments Anion Gap Estim Creat Clear Calc Estimated GFR Random Glucose Lactic Acid Lactic Acid Fup @ 2Hr 1.9 Calcium Total Bilirubin Direct Bilirubin AST ALT Alkaline Phosphatase Ammonia B-Natriuretic Peptide Total Protein Albumin Lipase Urine Color YELLOW Urine Appearance CLEAR Urine pH 7.5 Ur Specific [place] <= 1.005 Urine Protein 1+ H Urine Glucose (UA) NEG Urine Ketones NEG Urine Blood NEG Urine Nitrite NEG Ur Leukocyte Esterase NEG Urine RBC 0 Urine WBC 0 Ur Squamous Epith Cells NONE Urine Bacteria TRACE Urine Opiates Screen Urine Fentanyl Screen Ur Barbiturates Screen Ur Phencyclidine Scrn Ur Amphetamines Screen U Benzodiazepines Scrn Urine Cocaine Screen U Marijuana (THC) Screen Ethyl Alcohol COVID-19 (CARL) Negative COVID-19 Clin Com See Note 05/13/21 20:10 MCV MCH MCHC RDW Plt Count MPV Immature Gran % (Auto) Neut % (Auto) Lymph % (Auto) [place] % (Auto) Eos % (Auto) Baso % (Auto) Lymph # (Auto) [place] # (Auto) Eos # (Auto) Baso # (Auto) Abs Immat Gran (auto) Absolute Neuts (auto) Absolute Nucleated RBC Nucleated RBC % (auto) Smear Tech's Comments Anion Gap Estim Creat Clear Calc Estimated GFR Random Glucose Lactic Acid Lactic Acid Fup @ 2Hr Calcium Total Bilirubin Direct Bilirubin AST ALT Alkaline Phosphatase Ammonia B-Natriuretic Peptide Total Protein Albumin Lipase Urine Color Urine Appearance Urine pH Ur Specific [place] Urine Protein Urine Glucose (UA) Urine Ketones Urine Blood Urine Nitrite Ur Leukocyte Esterase Urine RBC Urine WBC Ur Squamous Epith Cells Urine Bacteria Urine Opiates Screen Not Detected Urine Fentanyl Screen POSITIVE H Ur Barbiturates Screen POSITIVE H Ur Phencyclidine Scrn Not Detected Ur Amphetamines Screen Not Detected U Benzodiazepines Scrn Not Detected Urine Cocaine Screen Not Detected U Marijuana (THC) Screen Not Detected Ethyl Alcohol COVID-19 (CARL) COVID-19 Clin Com Imaging Radiologist's Impressions: Impressions Chest X-Ray 05/13/21 17:11 IMPRESSION: Asymmetric opacities in the medial aspect of the right lung base could be related with bronchovascular crowding and subsegmental atelectases in the setting of slight rotation of the patient and elevation of the right hemidiaphragm. However, aspiration and pneumonia are difficult to exclude. Correlate clinically and if indicated follow-up to ensure resolution. Abdomen/Pelvis CT 05/13/21 18:10 IMPRESSION: 1. Mild inflammatory change/stranding in the retroperitoneum adjacent to the pancreatic head. Additional mesenteric and retroperitoneal stranding, most prominent within the right paracolic gutter. Findings could indicate mild pancreatitis in the appropriate clinical setting. No pancreatic parenchymal lesion, biliary ductal dilatation, or fluid collection/abscess formation. 2. Sigmoid diverticulosis. Circumferential sigmoid wall thickening without adjacent inflammatory change. Findings could represent muscular hypertrophy. Very early diverticulitis cannot be excluded in the appropriate clinical setting. No small or large bowel obstruction. Unremarkable appendix. 3. No intra-abdominal free air or free fluid. No intra-abdominal mass or organized fluid collection/abscess formation. 4. Mild splenomegaly. 5. Cholelithiasis without evidence of acute cholecystitis. No intrahepatic or extrahepatic biliary ductal dilatation. Assessment and Plan (1) Obesity: Status: Inactive 46 year old male with obesity, AFIB, alcohol dependency here with sob, anxiety.. Although given vancomycin and Zosyn in the emergency, there is no clinical evidence of pneumonia. He denies recent use of alcoholic and yet alcohol level is positive, he has fentanyl and barbiturate on tox screen.. Has mild increase in lipase and mild changes on pancreas on CT I think patient is likely withdrwaing from alcohol, there is no evidence of pneumonia. He has history of AFIB and cardiomyopathy but has not been taken medication Plan: Alcohol withdrawal --Stop Ativan and start Phenobarbital protocol, thiamin and folic acid replacment. CARE consult before discharge. Hypokalemia--replace K Mild increase in Lipase,, assymptomatic for pancreatitis h/o AFIB presently in Sinus, will restart Cardizem for BP control, hold anticoagulation with Xarelto since has not been taking this. Obesity--encourage weight loss DVT prophylaxis.. Xarelto 10 Quality Stroke Does the patient have a stroke diagnosis?: No VTE Prior VTE?: No VTE Risk Level:: Medical - moderate - high VTE Device Contraindication: Treatment Not Indicated VTE Drug Contraindication: N/A - Med Ordered
[2021-05-14] VITALS (9 sets, daily range): BP systolic 120–158; BP diastolic 68–100; PULSE 75–88; RESP 12–22; TEMP 36.8–37.4; O2SAT 94–97; BMI 33.9
[2021-05-14] MEDS: PHENobarbitaL sodium 130 MG/ML VIAL 310 MG IM (00:16)
[2021-05-14] MEDS: Potassium Chloride Packet 20 MEQ PACKET 40 MEQ PO (01:57)
[2021-05-14] MEDS: PHENobarbitaL sodium 130 MG/ML VIAL 232 MG IM ×2 (03:59→06:36)
--- NOTE | 2021-05-14 04:02 | PC.NURSE ---
no visable tremors, pt sleeping, skin pink warm and dry, sat 99% on room air, denies n/v/d. no visual or auditory hallucinations.
--- NOTE | 2021-05-14 06:08 | PC.NURSE ---
waiting for phenobarbital from pharmacy. not enough in the pyxis
[2021-05-14] MEDS: Folic Acid 1 MG TABLET PO (08:06)
[2021-05-14] MEDS: Thiamine HCL 100 MG TABLET PO (08:07)
[2021-05-14] MEDS: 0.9 % Sodium Chloride Flush 3 ML SYRINGE IVFLUSH ×2 (08:07→20:50)
[2021-05-14 08:54] LABS: Ammonia 89 umol/L (13-55)
[2021-05-14 09:07] LABS: Anion Gap 14 (12-20); Blood Urea Nitrogen 4 mg/dL (9-16); Carbon Dioxide 17 mmol/L (22-29); Chloride 108 mmol/L (96-108); Creatinine Clr Calc Pharmacy 204.7; Estimated Glomerular Filt Rate > 60; Glucose Random 85 mg/dL (60-115); Lipase 54 U/L (8-78); Magnesium 1.6 mg/dL (1.6-2.6); Potassium 4.2 mmol/L (3.3-5.1); Sodium 135 mmol/L (135-145)
[2021-05-14] MEDS: Lactated Ringers 1,000 ML 150 ML IVCONT ×3 (09:11→22:48)
--- NOTE | 2021-05-14 11:51 | PM.IMPN ---
Progress Note: A&P (1) Acute pancreatitis: Status: Acute (2) Alcohol abuse: Status: Acute (3) Tobacco use: Status: Acute Assessment and Plan: 46-year-old man admitted with acute pancreatitis secondary to alcohol abuse. Acute pancreatitis. Secondary to alcohol IV fluid hydration Pain management trend lipase Clear liquid diet, advance as tolerated Alcohol withdrawal. Phenobarbital protocol Paroxysmal atrial fibrillation Does not appear to be taking his Cardizem or Xarelto. will continue Cardizem and hold Xarelto Tobacco use. Discussed importance of smoking cessation NRT DVT prophylaxis xarelto 10mg Attending Dr. Eaton Full code Subjective Subjective Date of Service: 05/14/21 Review of Systems Follow-up acute pancreatitis mild pain, denies nausea, vomiting, diarrhea Physical Exam Vital Signs: Vital Signs: Last Vital Signs Temp 98.4 F 05/14/21 07:53 Pulse 79 05/14/21 09:11 Resp 19 05/14/21 09:11 BP 129/87 05/14/21 09:11 Pulse Ox 97 05/14/21 09:11 Body Mass Index 33.9 Appearing in no acute distress lung sounds are clear to auscultation heart regular rate rhythm, clear S1, S2 positive bowel sounds, abdomen is soft, nontender neuro patient is alert x3, no focal deficits Objective Data Current Medications Acetaminophen (Acetaminophen 325 Mg Tablet) 650 mg PO Q6H PRN PRN Reason: Pain, Mild (Pain Scale 1-3) Folic Acid (Folic Acid 1 Mg Tablet) 1 mg PO DAILY [facility] [place] Stop: 05/16/21 09:01 Last Admin: 05/14/21 08:06 Dose: 1 mg Documented by: Lactated Ringer's (Lr) 1,000 mls @ 150 mls/hr IVCONT .Q6H40M [facility] [place] Last Admin: 05/14/21 09:11 Dose: 150 mls/hr Documented by: Medication (No Benzodiazepines) 1 each MISCELLANE DAILY [facility] [place] Melatonin (Melatonin 3 Mg Tablet) 6 mg PO BEDTIME PRN PRN Reason: Insomnia Phenobarbital (Phenobarbital 30 Mg Tablet) 60 mg PO BID [facility] [place] Stop: 05/16/21 09:01 Phenobarbital (Phenobarbital 30 Mg Tablet) 30 mg PO BID [facility] [place] Stop: 05/18/21 09:01 Phenobarbital (Phenobarbital 30 Mg Tablet) 30 mg PO DAILY [facility] [place] Stop: 05/20/21 09:01 Sodium Chloride (0.9 % Sodium Chloride Flush 3 Ml Syringe) 3 ml IVFLUSH QSHIFT [facility] [place] Last Admin: 05/14/21 08:07 Dose: 3 ml Documented by: Thiamine HCl (Thiamine Hcl 100 Mg Tablet) 100 mg PO DAILY [facility] [place] Stop: 05/16/21 09:01 Last Admin: 05/14/21 08:07 Dose: 100 mg Documented by: Labs CBC & Chem 7: 05/13/21 17:22 05/14/21 08:39 Labs: Laboratory Results - last 24 hr 05/13/21 05/13/21 05/13/21 17:16 17:22 17:22 MCV 93.1 MCH 32.8 MCHC 35.3 RDW 13.4 Plt Count 105 L MPV 10.4 Immature Gran % (Auto) 0.3 Neut % (Auto) 76.8 H Lymph % (Auto) 13.3 L Harnett % (Auto) 8.7 Eos % (Auto) 0.1 Baso % (Auto) 0.8 Lymph # (Auto) 1.2 Harnett # (Auto) 0.8 Eos # (Auto) 0.0 Baso # (Auto) 0.1 Abs Immat Gran (auto) 0.03 Absolute Neuts (auto) 6.8 Absolute Nucleated RBC 0.000 Nucleated RBC % (auto) 0.0 Smear Tech's Comments VERIFIED Anion Gap 18 Estim Creat Clear Calc 191.4 Estimated GFR > 60 Random Glucose 91 Lactic Acid 3.8 H* Lactic Acid Fup @ 2Hr Calcium 9.3 D Magnesium Total Bilirubin 3.2 H Direct Bilirubin 1.3 H AST 58 H ALT 28 Alkaline Phosphatase 92 Ammonia B-Natriuretic Peptide Total Protein 9.2 H Albumin 3.1 L Lipase 83 H Urine Color Urine Appearance Urine pH Ur Specific [place] Urine Protein Urine Glucose (UA) Urine Ketones Urine Blood Urine Nitrite Ur Leukocyte Esterase Urine RBC Urine WBC Ur Squamous Epith Cells Urine Bacteria Urine Opiates Screen Urine Fentanyl Screen Ur Barbiturates Screen Ur Phencyclidine Scrn Ur Amphetamines Screen U Benzodiazepines Scrn Urine Cocaine Screen U Marijuana (THC) Screen Ethyl Alcohol COVID-19 (CARL) COVID-19 Clin Com 05/13/21 05/13/21 05/13/21 17:22 17:23 17:23 MCV MCH MCHC RDW Plt Count MPV Immature Gran % (Auto) Neut % (Auto) Lymph % (Auto) Harnett % (Auto) Eos % (Auto) Baso % (Auto) Lymph # (Auto) Harnett # (Auto) Eos # (Auto) Baso # (Auto) Abs Immat Gran (auto) Absolute Neuts (auto) Absolute Nucleated RBC Nucleated RBC % (auto) Smear Tech's Comments Anion Gap Estim Creat Clear Calc Estimated GFR Random Glucose Lactic Acid Lactic Acid Fup @ 2Hr Calcium Magnesium Total Bilirubin Direct Bilirubin AST ALT Alkaline Phosphatase Ammonia 66 H B-Natriuretic Peptide 60 Total Protein Albumin Lipase Urine Color Urine Appearance Urine pH Ur Specific [place] Urine Protein Urine Glucose (UA) Urine Ketones Urine Blood Urine Nitrite Ur Leukocyte Esterase Urine RBC Urine WBC Ur Squamous Epith Cells Urine Bacteria Urine Opiates Screen Urine Fentanyl Screen Ur Barbiturates Screen Ur Phencyclidine Scrn Ur Amphetamines Screen U Benzodiazepines Scrn Urine Cocaine Screen U Marijuana (THC) Screen Ethyl Alcohol 25 COVID-19 (CARL) COVID-19 Genticel 05/13/21 05/13/21 05/13/21 17:24 19:49 20:10 MCV MCH MCHC RDW Plt Count MPV Immature Gran % (Auto) Neut % (Auto) Lymph % (Auto) Harnett % (Auto) Eos % (Auto) Baso % (Auto) Lymph # (Auto) Harnett # (Auto) Eos # (Auto) Baso # (Auto) Abs Immat Gran (auto) Absolute Neuts (auto) Absolute Nucleated RBC Nucleated RBC % (auto) Smear Tech's Comments Anion Gap Estim Creat Clear Calc Estimated GFR Random Glucose Lactic Acid Lactic Acid Fup @ 2Hr 1.9 Calcium Magnesium Total Bilirubin Direct Bilirubin AST ALT Alkaline Phosphatase Ammonia B-Natriuretic Peptide Total Protein Albumin Lipase Urine Color YELLOW Urine Appearance CLEAR Urine pH 7.5 Ur Specific [place] <= 1.005 Urine Protein 1+ H Urine Glucose (UA) NEG Urine Ketones NEG Urine Blood NEG Urine Nitrite NEG Ur Leukocyte Esterase NEG Urine RBC 0 Urine WBC 0 Ur Squamous Epith Cells NONE Urine Bacteria TRACE Urine Opiates Screen Urine Fentanyl Screen Ur Barbiturates Screen Ur Phencyclidine Scrn Ur Amphetamines Screen U Benzodiazepines Scrn Urine Cocaine Screen U Marijuana (THC) Screen Ethyl Alcohol COVID-19 (CARL) Negative COVID-19 Genticel See Note 05/13/21 05/14/21 05/14/21 20:10 08:39 08:40 MCV MCH MCHC RDW Plt Count MPV Immature Gran % (Auto) Neut % (Auto) Lymph % (Auto) Harnett % (Auto) Eos % (Auto) Baso % (Auto) Lymph # (Auto) H[place]ett # (Auto) Eos # (Auto) Baso # (Auto) Abs Immat Gran (auto) Absolute Neuts (auto) Absolute Nucleated RBC Nucleated RBC % (auto) Smear Tech's Comments Anion Gap 14 Estim Creat Clear Calc 204.7 Estimated GFR > 60 Random Glucose 85 Lactic Acid Lactic Acid Fup @ 2Hr Calcium 8.0 L D Magnesium 1.6 Total Bilirubin Direct Bilirubin AST ALT Alkaline Phosphatase Ammonia 89 H B-Natriuretic Peptide Total Protein Albumin Lipase 54 Urine Color Urine Appearance Urine pH Ur Specific [place] Urine Protein Urine Glucose (UA) Urine Ketones Urine Blood Urine Nitrite Ur Leukocyte Esterase Urine RBC Urine WBC Ur Squamous Epith Cells Urine Bacteria Urine Opiates Screen Not Detected Urine Fentanyl Screen POSITIVE H Ur Barbiturates Screen POSITIVE H Ur Phencyclidine Scrn Not Detected Ur Amphetamines Screen Not Detected U Benzodiazepines Scrn Not Detected Urine Cocaine Screen Not Detected U Marijuana (THC) Screen Not Detected Ethyl Alcohol COVID-19 (CARL) COVID-19 Clin Com Quality Stroke Does the patient have a stroke diagnosis?: No VTE Prior VTE?: No VTE Risk Level:: Medical - low VTE Device Contraindication: Treatment Not Indicated VTE Drug Contraindication: Treatment Not Indicated
[2021-05-14 12:25] LABS: Alanine Aminotransferase 24 U/L (0-40); Albumin Level 2.9 g/dL (3.5-5.0); Alkaline Phosphatase 82 U/L (39-117); Aspartate Amino Transferase 53 U/L (5-37); Bilirubin Direct 1.6 mg/dL (0.0-0.5); Bilirubin Total 4.7 mg/dL (0.0-1.0); Total Protein 8.6 g/dL (6.5-8.0)
[2021-05-14] MEDS: Lactulose 20 GM/30 ML SOLUTION 30 GM PO ×2 (13:23→20:49)
[2021-05-14] MEDS: Acetaminophen 325 MG TABLET 650 MG PO (14:07)
--- NOTE | 2021-05-14 14:14 | PC.NURSE ---
NURSE NURSE GIVEN TO LULÚ (RN), PT AWARE OF PLAN OF CARE FOR ADMISSION TO HOSP.
--- NOTE | 2021-05-14 16:28 | MHC.CM.PN ---
CM ATTEMPTED TO MEET WITH PT WHO WAS SLEEPING CM TO RETURN
[2021-05-14] MEDS: PHENobarbitaL 30 MG TABLET 60 MG PO (20:49)
[2021-05-15] VITALS (7 sets, daily range): BP systolic 92–159; BP diastolic 55–92; PULSE 73–83; RESP 14–18; TEMP 36.4–37.7; O2SAT 93–97
[2021-05-15] MEDS: Lactated Ringers 1,000 ML 150 ML IVCONT ×3 (05:24→20:50)
[2021-05-15 06:11] LABS: Ammonia 52 umol/L (13-55)
[2021-05-15 06:14] LABS: Lipase 46 U/L (8-78)
[2021-05-15 06:25] LABS: Anion Gap 14 (12-20); Blood Urea Nitrogen 4 mg/dL (9-16); Calcium 8.1 mg/dL (8.4-10.2); Carbon Dioxide 20 mmol/L (22-29); Chloride 106 mmol/L (96-108); Creatinine Clr Calc Pharmacy 211.9; Estimated Glomerular Filt Rate > 60; Glucose Random 78 mg/dL (60-115); Potassium 3.1 mmol/L (3.3-5.1); Sodium 137 mmol/L (135-145)
[2021-05-15 08:27] LABS: Magnesium 1.5 mg/dL (1.6-2.6)
[2021-05-15] MEDS: Potassium Chloride ER 20 MEQ TAB.ER.PRT 40 MEQ PO (09:05)
[2021-05-15] MEDS: Thiamine HCL 100 MG TABLET PO (09:06)
[2021-05-15] MEDS: Rivaroxaban 10 MG TABLET PO (09:06)
[2021-05-15] MEDS: PHENobarbitaL 30 MG TABLET 60 MG PO ×2 (09:06→20:50)
[2021-05-15] MEDS: dilTIAZem HCL CD 240 MG CAP.ER.DEG PO (09:06)
[2021-05-15] MEDS: Folic Acid 1 MG TABLET PO (09:06)
--- NOTE | 2021-05-15 10:07 | MHC.CM.PN ---
CM MET WITH PT WHO REPORTS HE LIVES WITH FAMILY PT IS INDEPENDENT AT BASELINE AND WORKS PT HAS NO DME AND NO IN HOME SERVICES PT CONFIRMS HIS PCP IS DARRYL COELLO HOWEVER REPORTS HE HAS ALSO SEEN [facility] PT REPORTS HE HAS A HCP NAMING HIS COUSIN HIS AGENT PT IS UNSURE IF HE HAS HEALTH INSURANCE AND IS AWARE A REFERRAL WILL BE SENT TO [facility] [place] FS CURRENT DC PLAN IS HOME WITH NO SERVICES PT WILL ARRANGE TRANSPORT
--- NOTE | 2021-05-15 12:29 | PM.IMPN ---
Progress Note: A&P (1) Hypomagnesemia: Status: Acute (2) Hypokalemia: Status: Acute (3) Alcohol abuse: Status: Acute (4) Acute pancreatitis: Status: Acute Assessment and Plan: 46-year-old man admitted with acute pancreatitis secondary to alcohol abuse.? Acute pancreatitis.? Secondary to alcohol IV fluid hydration Pain management trend lipase advance to regular diet Hypomagnesemia/hypokalemia. Likely secondary to diarrhea from lactulose Potassium 40 2 mg IV magnesium Hyperammonemia. resolved Likely secondary to heavy alcohol use Check LFTs stop Lactulose Follow neuro status Alcohol withdrawal. Phenobarbital protocol Paroxysmal atrial fibrillation Does not appear to be taking his Cardizem or Xarelto. will continue Cardizem and hold Xarelto Tobacco use. Discussed importance of smoking cessation NRT DVT prophylaxis xarelto 10mg DISPOlikely discharge tomorrow when medically stable Attending Dr. Eaton Full code Subjective Subjective Date of Service: 05/15/21 Review of Systems follow up pancreatitis. No pain appetite improving Physical Exam Vital Signs: Vital Signs: Last Vital Signs Temp 99.3 F 05/15/21 11:27 Pulse 81 05/15/21 11:27 Resp 18 05/15/21 11:27 BP 153/92 H 05/15/21 11:27 Pulse Ox 93 05/15/21 11:27 Body Mass Index 33.9 Appearing in no acute distress lung sounds are clear to auscultation heart regular rate rhythm, clear S1, S2 positive bowel sounds, abdomen is soft, nontender neuro patient is alert x3, no focal deficits Objective Data Current Medications Acetaminophen (Acetaminophen 325 Mg Tablet) 650 mg PO Q6H PRN PRN Reason: Pain, Mild (Pain Scale 1-3) Last Admin: 05/14/21 14:07 Dose: 650 mg Documented by: Diltiazem HCl (Diltiazem Hcl Cd 240 Mg Cap.Er.Deg) 240 mg PO DAILY REPLACED BY [facility]; Protocol Last Admin: 05/15/21 09:06 Dose: 240 mg Documented by: Folic Acid (Folic Acid 1 Mg Tablet) 1 mg PO DAILY [facility] Stop: 05/16/21 09:01 Last Admin: 05/15/21 09:06 Dose: 1 mg Documented by: Lactated Ringer's (Lr) 1,000 mls @ 150 mls/hr IVCONT .Q6H40M REPLACED BY [facility] Last Admin: 05/15/21 12:01 Dose: 150 mls/hr Documented by: Lactulose (Lactulose 20 Gm/30 Ml Solution) 30 gm PO TID REPLACED BY [facility] Last Admin: 05/15/21 09:07 Dose: Not Given Documented by: Medication (No Benzodiazepines) 1 each MISCELLANE DAILY REPLACED BY [facility] Melatonin (Melatonin 3 Mg Tablet) 6 mg PO BEDTIME PRN PRN Reason: Insomnia Morphine Sulfate (Morphine Sulfate 2 Mg/Ml Cartridge) 2 mg IVPUSH Q4H PRN; Protocol PRN Reason: pain Nicotine Polacrilex (Nicotine Polacrilex 2 Mg Gum) 2 mg BUCCAL Q2H PRN PRN Reason: withdrawal Phenobarbital (Phenobarbital 30 Mg Tablet) 60 mg PO BID [facility]PL[facility] Stop: 05/16/21 09:01 Last Admin: 05/15/21 09:06 Dose: 60 mg Documented by: Phenobarbital (Phenobarbital 30 Mg Tablet) 30 mg PO BID [facility]PL[facility] BY [facility] Stop: 05/18/21 09:01 Phenobarbital (Phenobarbital 30 Mg Tablet) 30 mg PO DAILY [facility] Stop: 05/20/21 09:01 Rivaroxaban (Rivaroxaban 10 Mg Tablet) 10 mg PO DAILY REPLACED BY [facility] Last Admin: 05/15/21 09:06 Dose: 10 mg Documented by: Sodium Chloride (0.9 % Sodium Chloride Flush 3 Ml Syringe) 3 ml IVFLUSH QSHIFT REPLACED BY [facility] Last Admin: 05/15/21 09:07 Dose: Not Given Documented by: Thiamine HCl (Thiamine Hcl 100 Mg Tablet) 100 mg PO DAILY REPLACED BY [facility] Stop: 05/16/21 09:01 Last Admin: 05/15/21 09:06 Dose: 100 mg Documented by: Labs CBC & Chem 7: 05/13/21 17:22 05/15/21 05:22 Labs: Laboratory Results - last 24 hr 05/15/21 05/15/21 05/15/21 05:22 05:22 05:22 Anion Gap 14 Estim Creat Clear Calc 211.9 Estimated GFR > 60 Random Glucose 78 Calcium 8.1 L Magnesium 1.5 L Ammonia 52 Lipase 46 Microbiology Microbiology Results: Microbiology 05/13/21 20:10 Blood - Venous Blood Culture - Preliminary No growth after 24 hours. 05/13/21 17:23 Blood - Venous Blood Culture - Preliminary No growth after 24 hours. Quality Stroke Does the patient have a stroke diagnosis?: No VTE Prior VTE?: No VTE Risk Level:: Medical - moderate - high VTE Device Contraindication: Treatment Not Indicated VTE Drug Contraindication: N/A - Med Ordered
[2021-05-15] MEDS: Magnesium Sulfate/H2O 2 GM/50 ML PIGGYBACK IV (13:41)
[2021-05-15] MEDS: Acetaminophen 325 MG TABLET 650 MG PO (20:50)
[2021-05-15] MEDS: Melatonin 3 MG TABLET 6 MG PO (23:59)
--- NOTE | 2021-05-16 00:58 | PC.NURSE ---
BP 100/95 at 18:56, 92/55 approximately 0000. Asymptomatic. Cardizem started today. IVF @150mL/hr
[2021-05-16] MEDS: Lactated Ringers 1,000 ML 150 ML IVCONT (03:54)
[2021-05-16 04:00] VITALS: BP 90/52; PULSE 67; RESP 17; TEMP 37.2; O2SAT 96
[2021-05-16 06:06] LABS: Alanine Aminotransferase 21 U/L (0-40); Albumin Level 2.8 g/dL (3.5-5.0); Alkaline Phosphatase 85 U/L (39-117); Aspartate Amino Transferase 34 U/L (5-37); Bilirubin Direct 1.4 mg/dL (0.0-0.5); Bilirubin Total 2.5 mg/dL (0.0-1.0); Magnesium 1.8 mg/dL (1.6-2.6); Total Protein 7.8 g/dL (6.5-8.0)
[2021-05-16 06:10] LABS: Anion Gap 11 (12-20); Blood Urea Nitrogen 5 mg/dL (9-16); Calcium 8.6 mg/dL (8.4-10.2); Carbon Dioxide 23 mmol/L (22-29); Chloride 106 mmol/L (96-108); Creatinine Clr Calc Pharmacy 188.4; Estimated Glomerular Filt Rate > 60; Glucose Random 85 mg/dL (60-115); Potassium 3.7 mmol/L (3.3-5.1); Sodium 136 mmol/L (135-145)
[2021-05-16 08:00] VITALS: BP 107/60; PULSE 70; RESP 18; TEMP 36.4; O2SAT 96
[2021-05-16] MEDS: PHENobarbitaL 30 MG TABLET 60 MG PO (08:29)
[2021-05-16] MEDS: Rivaroxaban 10 MG TABLET PO (08:29)
[2021-05-16] MEDS: Thiamine HCL 100 MG TABLET PO (08:29)
[2021-05-16] MEDS: Folic Acid 1 MG TABLET PO (08:30)
--- NOTE | 2021-05-16 09:33 | P.DS_ITS ---
DS: Providers Provider Date of Service: 05/16/21 Date of admission: 05/13/21 22:50 Primary care physician: Prateek Lucio MD Attending physician on discharge: Kemar Mata Discharging clinician: Ysabel Anderson DS: Diagnosis Discharge Diagnosis (1) Hypomagnesemia: Status: Acute (2) Hypokalemia: Status: Acute (3) Alcohol abuse: Status: Acute (4) Acute pancreatitis: Status: Acute DS: Summary Hospital Course Hospital Course: HP as per admitting provider 46 year old male with history of chronic alcohol dependency, history of atrial fibrillation, history of heart failure related to AFib, obesity.? He presents to the emergency room today with a constellation of complaining.? He states that he woke up this morning sob, diarrhea and chills. He was very anxious in ED with no evidence of respiratory distress, he apparently has not been taking his meds for months. While he told ED Doctor that he hasn't drank in more than a month, he told he told me he drank just 8 ounces 2 days, ago. Initial work up showed K of 3.2, lactic 3. 8, repeat normal, bicab of 17, lipase 83, Utox is positive for Fentanyl and Barbiturates, he denies ilicit drug use and opiod and barbiturate are not part of his meds. Covid is negative. CT of abdomen shows some inflamatory changes around the pancreas--he o therwise looks comfortable Acute pancreatitis.? Secondary to alcohol abuse. Treated with IV fluid hydration, Pain management. Lipase trended down nicely. Hypomagnesemia/hypokalemia.? Likely secondary to diarrhea from lactulose Hyperammonemia. Treated with lactulose. Resolved. Alcohol withdrawal. Phenobarbital protocol. No active withdrawls. Advised to stop drinking alcohol. Paroxysmal atrial fibrillation. Stopped taking Cardizem and xarelto. He was put on cardizem while inpatient and his BP did drop significantly. This was stopped and he is to follow up with cardiology for further management of these medications. Time Spent with Patient Time attestation: Total time spent providing and/or coordinating discharge services: Discharge coordination time: Greater than 30 minutes Quality: Stroke Does the patient have a stroke diagnosis?: No Physical Exam Vital Signs: Vital Signs: Last Vital Signs Temp 97.5 F 05/16/21 08:00 Pulse 70 05/16/21 08:00 Resp 18 05/16/21 08:00 BP 107/60 05/16/21 08:00 Pulse Ox 96 05/16/21 08:00 Body Mass Index 33.9 Appearing in no acute distress head is normocephalic atraumatic eyes pupils are PERRLA sclera is anicteric mouth throat mucous membranes are intact and moist neck is supple no lymphadenopathy, no JVD noted lung sounds are clear to auscultation heart regular rate rhythm, clear S1, S2 positive bowel sounds, abdomen is soft, nontender neuro patient is alert x3, no focal deficits DS: Data Data Completed and Pending Completed studies during hospitalization [Text1]: Procedures Detoxification Services for Substance Abuse Treatment (06/27/20) Labs on day of discharge: Laboratory Results - last 24 hr 05/16/21 05/16/21 05:24 05:24 Sodium 136 Potassium 3.7 Chloride 106 Carbon Dioxide 23 Anion Gap 11 L BUN 5 L Creatinine 0.63 Estim Creat Clear Calc 188.4 Estimated GFR > 60 Random Glucose 85 Calcium 8.6 D Magnesium 1.8 Total Bilirubin 2.5 H Direct Bilirubin 1.4 H AST 34 ALT 21 Alkaline Phosphatase 85 Total Protein 7.8 Albumin 2.8 L Preliminary micro results at discharge 05/13/21 20:10 Blood Culture - Preliminary Blood - Venous No growth after 48 hours. 05/13/21 17:23 Blood Culture - Preliminary Blood - Venous No growth after 48 hours. Discharge Plan Discharge Anticipated Discharge Date/Time: 05/16/21 09:04 Patient Disposition: Home, Self-Care Discharge Diagnosis: Pancreatitis alcohol abuse Referrals: Prateek Lucio MD [Primary Care Provider] - 1 Week Discharge Medications: Continued melatonin 3 mg capsule 3 mg PO BEDTIME PRN (Reason: sleep) Qty: 30 RF: 0 nicotine [Nicoderm CQ] 21 mg/24 hr patch 24 hour 1 patch transdermal Q24H Qty: 14 RF: 0 thiamine HCl (vitamin B1) 100 mg tablet 1 tab PO DAILY RF: 0 folic acid 1 mg tablet 1 tab PO DAILY RF: 0 multivitamin with folic acid [Daily-Carissa (with folic acid)] 400 mcg tablet 1 tab PO DAILY RF: 0 Discharge Orders: Discharge Order (Routine); Ordered 05/16/21 Ordered By: Ysabel Anderson Diet: advance to usual diet Activity on Discharge: As tolerated Stand Alone Forms: Patient Portal Discharge page Care Plan Goals: Stop drinking alcohol Health Concerns: Pancreatitis alcohol abuse Plan of Treatment: Follow up with primary care provider as needed Follow up with cardiology regarding your cardiac medication Assessment: See discharge summary
--- NOTE | 2021-05-16 09:42 | MHC.CM.PN ---
PT CLEARED TO DC HOME TODAY WITH NO SERVICES FAMILY TO TRANSPORT
== END 2021-05-16 11:21 | disposition home or self-care (01) | DRG 439 ==
LOC: HO.ED 17:33 → HO.EDOVER 05-14 07:04 → HO.S3 05-14 14:02
PROVIDERS: Admitting Provider Internal Medicine; Emergency Provider Student in an Organized Health Care Education/Training Program; PCP Internal Medicine; Visit Provider Nurse Practitioner Acute Care
DX: K85.20 Alcohol induced acute pancreatitis without necrosis or infection (principal); E87.2 Acidosis; F10.239 Alcohol dependence with withdrawal, unspecified; K85.90 Acute pancreatitis without necrosis or infection, unspecified; F41.9 Anxiety disorder, unspecified; F17.210 Nicotine dependence, cigarettes, uncomplicated; Z71.6 Tobacco abuse counseling; E87.6 Hypokalemia; E66.9 Obesity, unspecified; Z68.33 Body mass index [BMI] 33.0-33.9, adult; I48.0 Paroxysmal atrial fibrillation; Z20.822 Contact with and (suspected) exposure to COVID-19; Z79.899 Other long term (current) drug therapy
CPT/HCPCS: 36415; 71046; 74177; 80048; 80076; 80307; 81001; 82077; 82140; 83605; 83690; 83735; 83880; 85025; 87040; 87635; 93005; 96365; 96367; 96375; 96376; 99285; 99291; J2543; J2560; J3370; J3475; Q9967

== ENCOUNTER 2022-02-09 11:37 | Outpatient (REF) | payer MEDICAID, SELFPAY ==
[2022-02-09 12:06] LABS: Ammonia 71 umol/L (13-55)
[2022-02-09 12:16] LABS: INTERNATIONAL NORM RATIO 1.3 (0.9-1.1); Prothrombin Time 15.5 SEC (10.0-13.1)
[2022-02-09 12:17] LABS: Basophils Absolute Auto 0.1 X10*3/uL (0.0-0.2); Basophils Percent Auto 1.2 % (0-2); Eosinophils Absolute Auto 0.2 X10*3/uL (0.0-0.4); Eosinophils Percent Auto 5.7 % (0-4); Hematocrit 37.7 % (42.0-52.0); Hemoglobin 12.6 g/dl (14.0-18.0); Imm Gran Abs Auto 0.01 X10*3/uL (0.00-0.03); Imm Gran Pct Auto 0.2 % (0.0-0.4); Lymphocytes Absolute Auto 0.9 X10*3/uL (1.2-4.9); Lymphocytes Percent Auto 22.2 % (20-40); MANUAL DIFF FLAG SCAN; Mean Corpuscular HGB Conc 33.4 g/dl (31.0-36.0); Mean Corpuscular Hemoglobin 30.8 pg (27.0-33.0); Mean Corpuscular Volume 92.2 fL (80.0-98.0); Mean Platelet Volume 10.4 fL (9.4-12.4); Monocytes Absolute Auto 0.4 X10*3/uL (0.1-1.2); Monocytes Percent Auto 9.7 % (2-11); Neutrophils Absolute Auto 2.4 x10*3/uL (2.0-8.3); PLT CLUMP 1; Platelet Count 98 X10*3/uL (160-400); Red Blood Count 4.09 X10*6/uL (4.60-5.80); Red Cell Distribution Width 15.4 % (11.0-16.0); SCAN SMEAR FLAG 1
[2022-02-09 12:34] LABS: Alanine Aminotransferase 23 U/L (0-40); Albumin Level 3.5 g/dL (3.5-5.0); Alkaline Phosphatase 69 U/L (39-117); Aspartate Amino Transferase 38 U/L (5-37); Bilirubin Direct 0.8 mg/dL (0.0-0.5); Bilirubin Total 2.1 mg/dL (0.0-1.0); Iron 72 mcg/dL (45-160); Percent Iron Saturation 21 % (15-50); Total Iron Binding Capacity 339 mcg/dL (228-428); Total Protein 7.5 g/dL (6.5-8.0); Unsaturated Iron Binding 267 ug/dL
[2022-02-09 12:44] LABS: SLIDE REVIEW VERIFIED
[2022-02-09 12:57] LABS: Ferritin 64 ng/mL (20-250)
[2022-02-10 08:00] LABS: HBS Num1 0.64 mIU/mL (0-7.99); HBsAGNum1 0.18 S/CO (0.00-0.99); Hepatitis B Core Antibody Nonreactive (Nonreactive); Hepatitis B Surface Antigen Negative (Negative); ~HepC Num1 0.14 S/CO (0.00-0.79); ~Hepatitis B Surface Antibody NONREACTIVE (Nonreactive); ~Hepatitis C Antibody Nonreactive (Nonreactive)
[2022-02-16 20:36] LABS: FIB-ALT 19 U/L (9-46); FIB-Alpha-2-Macroglobulin 289 mg/dL (106-279); FIB-Apolipoprotein A1 148 mg/dL (94-176); FIB-GGT 49 U/L (3-95); FIB-Haptoglobin <8 mg/dL (43-212); FIB-Total Bilirubin 1.7 mg/dL (0.2-1.2); Liver Fibrosis Stage F4; Nec Inflam Act Grade A0; Nec Inflam Act Score 0.16
== END 2022-02-09 11:38 | disposition home or self-care (01) ==
LOC: HO.LAB 11:37
PROVIDERS: PCP Internal Medicine; Visit Provider Internal Medicine
DX: K70.9 Alcoholic liver disease, unspecified (principal); K72.90 Hepatic failure, unspecified without coma
CPT/HCPCS: 36415; 80076; 81596; 82140; 82728; 83540; 85025; 85610; 86704; 86706; 86803; 87340

== ENCOUNTER → 2022-02-27 13:13 | Outpatient (BNVA) | payer MEDICAID, SELFPAY | PROVIDERS: PCP Internal Medicine; Visit Provider Surgery | DX: K42.9 Umbilical hernia without obstruction or gangrene (principal); K70.31 Alcoholic cirrhosis of liver with ascites | CPT/HCPCS: 99202 ==

== ENCOUNTER 2022-03-14 06:07 | Outpatient (REF) | payer MEDICAID, SELFPAY ==
--- NOTE | ~2022-03-14 | CT_ITS ---
EXAMINATION: CT ABDOMEN AND PELVIS WITH CONTRAST CLINICAL INFORMATION: Cirrhosis of liver. COMPARISON: CT abdomen and pelvis 05/13/2021. TECHNIQUE: Multidetector volumetric images were obtained from the superior aspect of the liver through the pubic symphysis following administration 85 mL of Omnipaque 350 intravenous contrast. Sagittal and coronal reformatted images were obtained on the technologist's workstation. Oral contrast: No This CT examination was performed using dose optimization techniques as appropriate, variously including the following: *Automated exposure control *Adjustment of mA and/or kV according to patient size (this includes techniques or standardized protocols for targeted exams where dose is matched to indication/reason for exam; i.e. extremities or head) *Use of iterative reconstruction technique DLP: 509 mGy-cm FINDINGS: LUNG BASES: There is a small right basilar atelectasis. The heart size is normal. LIVER, GALLBLADDER, AND BILIARY TREE: The liver is normal in size, shape, and attenuation. No focal hepatic lesion or biliary ductal dilatation is present. There are small radiopaque gallstones without wall thickening or pericholecystic fluid collection. PANCREAS: Unremarkable. SPLEEN: The spleen is mildly enlarged measuring 15 cm in AP length. There are prominent collateral vessels in the left upper quadrant and left upper retroperitoneum. ADRENAL GLANDS: Unremarkable. KIDNEYS AND URETERS: The kidneys are normal in size, shape, and attenuation. No hydronephrosis, hydroureter, or calculi seen. No perinephric stranding. BLADDER: Unremarkable. GASTROINTESTINAL TRACT: There is scattered stool, diverticula, gas and oral contrast seen throughout the colon without distention. The small-bowel loops are normal caliber. Appendix is not seen. There is no free air or free fluid. There is mild mesenteric haziness and small mesenteric lymph nodes which could be secondary to edema from portal hypertension. ABDOMINAL WALL: There is a moderate-size umbilical hernia containing intraperitoneal fat. LYMPH NODES: Normal. VASCULAR: The IVC is slightly enlarged. Slightly enlarged bilateral renal veins are noted. The abdominal aorta is of normal caliber. PELVIC VISCERA: Unremarkable. OSSEOUS STRUCTURES: There are degenerative disc changes L3-L4, L4-L5 and L5-S1 disc levels with mild ventral and posterior spondylosis. CT/CT abdomen pelvis w con IMPRESSION: Prominent collateral vessels in the left para-aortic and left upper quadrant likely secondary to portal venous hypertension. Cholelithiasis without wall thickening Mild splenomegaly. Mild diverticulosis. Small umbilical hernia containing fat. Fleischner guidelines were followed.
[2022-03-14] MEDS: iohexoL 350 MG/ML 100 ML INFUS..BTL IV (09:04)
[2022-03-14] MEDS: Barium Sulfate Oral (Berry) 450 ML ORAL.SUSP 900 ML PO (09:05)
== END 2022-03-14 06:08 | disposition home or self-care (01) ==
LOC: HO.CT 06:07
PROVIDERS: Absent Provider Internal Medicine; PCP Internal Medicine; Visit Provider Surgery
DX: K42.9 Umbilical hernia without obstruction or gangrene (principal); K70.31 Alcoholic cirrhosis of liver with ascites
CPT/HCPCS: 74177; Q9967

== ENCOUNTER → 2022-03-21 12:14 | Outpatient (BNVA) | payer MEDICAID, SELFPAY | PROVIDERS: PCP Internal Medicine; Referring Provider Internal Medicine; Visit Provider Surgery | DX: K70.31 Alcoholic cirrhosis of liver with ascites (principal); K42.9 Umbilical hernia without obstruction or gangrene | CPT/HCPCS: 99212 ==

== ENCOUNTER → 2022-05-09 09:28 | Outpatient (BNVA) | payer MEDICAID, SELFPAY | PROVIDERS: PCP Internal Medicine; Referring Provider Internal Medicine; Visit Provider Internal Medicine | DX: Z01.810 Encounter for preprocedural cardiovascular examination (principal); I48.0 Paroxysmal atrial fibrillation; F10.10 Alcohol abuse, uncomplicated | CPT/HCPCS: 93005; 99212 ==

== ENCOUNTER 2022-06-22 14:47 | Outpatient (REF) | payer MEDICAID, SELFPAY ==
[2022-06-22 15:27] LABS: Basophils Absolute Auto 0.1 X10*3/uL (0.0-0.2); Imm Gran Abs Auto 0.02 X10*3/uL (0.00-0.03); Imm Gran Pct Auto 0.4 % (0.0-0.4); Monocytes Absolute Auto 0.7 X10*3/uL (0.1-1.2); PLT CLUMP 1; SCAN SMEAR FLAG 1
[2022-06-22 15:29] LABS: Basophils Percent Auto 1.4 % (0-2); Eosinophils Absolute Auto 0.4 X10*3/uL (0.0-0.4); Eosinophils Percent Auto 6.5 % (0-4); Hematocrit 38.6 % (42.0-52.0); Lymphocytes Absolute Auto 1.5 X10*3/uL (1.2-4.9); Lymphocytes Percent Auto 27.5 % (20-40); Mean Corpuscular HGB Conc 33.7 g/dl (31.0-36.0); Mean Corpuscular Hemoglobin 31.3 pg (27.0-33.0); Mean Platelet Volume 10.8 fL (9.4-12.4); Monocytes Percent Auto 12.2 % (2-11); Neutrophils Absolute Auto 2.9 x10*3/uL (2.0-8.3); Red Blood Count 4.15 X10*6/uL (4.60-5.80); Red Cell Distribution Width 14.2 % (11.0-16.0)
[2022-06-22 15:33] LABS: MANUAL DIFF FLAG NO; Platelet Count 112 X10*3/uL (160-400); White Blood Count 5.6 X10*3/uL (4.8-10.8)
[2022-06-22 15:34] LABS: INTERNATIONAL NORM RATIO 1.3 (0.9-1.1); Prothrombin Time 14.8 SEC (10.0-13.1)
[2022-06-22 15:50] LABS: Alanine Aminotransferase 23 U/L (0-40); Albumin Level 3.6 g/dL (3.5-5.0); Alkaline Phosphatase 73 U/L (39-117); Anion Gap 12 (12-20); Aspartate Amino Transferase 29 U/L (5-37); Bilirubin Total 1.6 mg/dL (0.0-1.0); Blood Urea Nitrogen 9 mg/dL (9-16); Calcium 9.2 mg/dL (8.4-10.2); Carbon Dioxide 26 mmol/L (22-29); Chloride 106 mmol/L (96-108); Cholesterol 224 mg/dL; Estimated Glomerular Filt Rate > 60; Glucose Random 71 mg/dL (60-115); HDL Cholesterol 67 mg/dL; LDL Cholesterol Calculated 143 mg/dl; Potassium 4.5 mmol/L (3.3-5.1); Sodium 139 mmol/L (135-145); Total Protein 7.2 g/dL (6.5-8.0); Triglycerides 73 mg/dL
== END 2022-06-22 14:48 | disposition home or self-care (01) ==
LOC: HO.LAB 14:47
PROVIDERS: PCP Internal Medicine; Visit Provider Internal Medicine
DX: F10.21 Alcohol dependence, in remission (principal); F17.211 Nicotine dependence, cigarettes, in remission; G62.0 Drug-induced polyneuropathy; K70.30 Alcoholic cirrhosis of liver without ascites
CPT/HCPCS: 36415; 80053; 80061; 85025; 85610

== ENCOUNTER 2023-04-03 08:22 | Emergency (ER) | payer MEDICAID, SELFPAY ==
--- NOTE | ~2023-04-03 | XR_ITS ---
EXAMINATION: XR NASAL BONES CLINICAL INFORMATION: Facial contusion. COMPARISON: None available. TECHNIQUE: 3 views of the nasal bones were obtained. FINDINGS: There are no fractures or dislocations. No bone, joint or soft tissue abnormality is demonstrated. XR/XR nasal bones min 3V IMPRESSION: Unremarkable nasal bone examination.
--- NOTE | ~2023-04-03 | CT_ITS ---
EXAMINATION: CT HEAD WITHOUT CONTRAST CLINICAL INFORMATION: Facial trauma, rule out intracranial abnormality. COMPARISON: None available. TECHNIQUE: Contiguous axial imaging was performed from the skull base to vertex without intravenous administration of contrast. Coronal and sagittal reformatted images were obtained. This CT examination was performed using dose optimization techniques as appropriate, variously including the following: *Automated exposure control *Adjustment of mA and/or kV according to patient size (this includes techniques or standardized protocols for targeted exams where dose is matched to indication/reason for exam; i.e. extremities or head) *Use of iterative reconstruction technique DLP: 714 mGy-cm FINDINGS: The cortical sulci are normal. The lateral ventricles are symmetrical. The third and fourth ventricles are in their normal midline position. The basilar and prepontine cisterns are unremarkable. Prominent CSF space posteriorly in the posterior cranial fossa. There is no acute intra or extracerebral abnormality. There is no mass effect or midline shift. Sections through the bony calvarium are unremarkable. The paranasal sinuses are clear. The bony orbits and orbital contents are unremarkable. CT/CT head/brain wo IV con IMPRESSION: No acute intracranial pathology.
--- NOTE | 2023-04-03 08:28 | ED_ITS ---
HPI - General Adult General Chief complaint: Overdose Stated complaint: OD W/FALL,HIT FACE,NARCAN GIVEN W/GOOD EFFECT Time Seen by Provider: 04/03/23 08:24 Source: patient, EMS and RN notes reviewed Mode of arrival: EMS Limitations: no limitations History of Present Illness HPI narrative: found face down on floor not breathing, needed to be bagged and required narcan 4mg intranasal Onset (ago): minute(s) Severity: moderate Related Data Home Medications Medication Instructions Recorded Confirmed folic acid 1 mg tablet 1 tab PO DAILY 05/14/21 05/09/22 multivitamin with folic acid 400 1 tab PO DAILY 05/14/21 05/09/22 mcg tablet (Daily-Carissa (with folic acid)) thiamine HCl (vitamin B1) 100 mg 1 tab PO DAILY 05/14/21 05/09/22 tablet acamprosate 333 mg tablet,delayed 666 mg PO TID 02/27/22 05/09/22 release cholecalciferol (vitamin D3) 1,250 1,250 mcg PO QWEEK 02/27/22 05/09/22 mcg (50,000 unit) capsule ferrous sulfate 324 mg (65 mg 324 mg PO DAILY 02/27/22 05/09/22 iron) tablet,delayed release hydroxyzine HCl 25 mg tablet 25 mg PO BID PRN 02/27/22 05/09/22 nadolol 20 mg tablet 20 mg PO DAILY 02/27/22 05/09/22 pantoprazole 40 mg tablet,delayed 40 mg PO DAILY 02/27/22 05/09/22 release pyridoxine (vitamin B6) 50 mg 50 mg PO DAILY 02/27/22 05/09/22 tablet rifaximin 550 mg tablet (Xifaxan) 550 mg PO BID 02/27/22 05/09/22 spironolactone 25 mg tablet 25 mg PO DAILY 02/27/22 05/09/22 trazodone 50 mg tablet 50 mg PO BEDTIME 02/27/22 05/09/22 furosemide 40 mg tablet 40 mg PO DAILY 05/09/22 05/09/22 Previous Rx's Medication Instructions Recorded melatonin 3 mg capsule 3 mg PO BEDTIME PRN sleep #30 caps 06/29/20 nicotine 21 mg/24 hr daily 1 patch transdermal Q24H #14 ea 06/29/20 transdermal patch (Nicoderm CQ) Allergies Allergy/AdvReac Type Severity Reaction Status Date / Time No Known Allergies Allergy Verified 04/03/23 08:36 [No Known Allergies*] [facility] Past Medical History Medical History (Updated 04/03/23 @ 10:55 by Michael Garcia MD) Afib Alcohol abuse Alcohol dependence Alcohol use disorder Anxiety Asthma HTN (hypertension) Obesity Tobacco dependence Surgical History History of ankle surgery Family History Family History Mother Colon cancer Diabetes Social History Social History Household Members: Family Housing: House Do you presently have visiting nurse or other home services: No Alcohol intake: current Alcohol intake frequency: former alcohol drinker Alcohol type: beer Patient Tobacco Use Status: Current someday Tobacco user Tobacco use type: Cigarette Cigarette Packs Per Day: 1 Smoked in Last 30 Days: Yes e-Cigarette/Vaping Use: Never Used Substance Use Type: Marijuana Substance Use Frequency: Chronic Longstanding Last Used Substance: Just Prior to Admission Advance Directives: Yes Advance Directives on File: Yes Advance Directives Date on File: 06/30/20 service: No Current occupational status: employed Physical Exam ED Vital Signs: Vital Signs - 24 hr 04/03/23 08:32 Temperature 98.4 F Pulse Rate 100 Respiratory Rate 16 Blood Pressure 148/100 H Pulse Oximetry 93 Oxygen Delivery Method Room Air BMI result Body Mass Index 28.9 Const General: healthy appearing Nutritional Appearance: average body habitus Orientation/consciousness: oriented to person and patient oriented x3 Limitations: no limitations HENMT Other: nasal contusion and abrasion Ears: external ears normal Mouth: Normal oral and palatal mucosa present and oropharynx normal Throat: Yes posterior oropharynx normal Eyes General: appearance normal, both eyes and all related structures Neck Other: supple nontender Neck: Yes normal visual inspection Chest Chest palpation & inspection: normal inspection of the chest Resp Auscultation: clear to auscultation bilaterally Cardio Jugular venous distension: no JVD Rate: regular rate Rhythm: regular rhythm Heart sounds: S1 normal heart sound present and S2 normal heart sound present GI Inspection: Yes normal to inspection Palpation (GI): Soft to palpation, nontender and No hepatosplenomegaly present Auscultation: normal bowel sounds General: Yes no CVA tenderness Back/Spine/Pelvis Back: no CVA tenderness Skin General skin exam: no rashes or lesions noted Neuro General: oriented to person and patient oriented x3 Cranial nerves: Yes CN's II-XII intact bilaterally Motor exam (neuro): 5/5 motor strength present throughout Extrem General: Yes normal to inspection Psych Appearance: grossly normal Course Reevaluation(s) Reevaluation #1: Patient denies suicidal ideation, states he does not do drugs despite waking up after narcan. Will dc home once he has SUDE evaluation Time: 10:48 Medical Decision Making Differential Diagnosis Differential Diagnoses: The differential diagnosis associated with the presentation includes (opiate overdose, alcohol abuse, liver cirrhosis, cerebral bleed, nasal fracture) Admission/Observation Consideration of admission/observation: Escalation of care including admission/observation considered (upon arrival patient was considered for admission) Consult Healthcare Provider Management of the patient was discussed with: Behavioral Health Provider (CARE team) Lab Data MDM Lab Attestation statement: I reviewed the patient's lab results. (positive for alcohol) Labs: Lab Results 04/03/23 Range/Units 09:19 Ethyl Alcohol 83 mg/dL Independent Interpretation I performed an independent interpretation of an: Plain X-Ray (nasal bones no fracture) and CT Scan (brain: no bleed) Independent Historian Clinical information obtained from an independent historian. History obtained from or confirmed by: EMS Tests considered The following testing was considered but not selected: I considered getting urine tox but patient was awake upon arrival Chronic Conditions Patient?s care impacted by: Other (alcoholism, liver cirrhosis) Social Determinants Patient?s care significantly limited by Social Determinants of Health including: Alcoholism and drug addiction in family Discharge Plan Discharge Clinical Impression: Opiate overdose, Alcohol abuse Patient Disposition: Home, Self-Care Instructions: Polysubstance Abuse (ED) Prescriptions: No Action melatonin 3 mg capsule 3 mg PO BEDTIME PRN (Reason: sleep) Qty: 30 0RF nicotine [Nicoderm CQ] 21 mg/24 hr patch 24 hour 1 patch transdermal Q24H Qty: 14 0RF thiamine HCl (vitamin B1) 100 mg tablet 1 tab PO DAILY folic acid 1 mg tablet 1 tab PO DAILY multivitamin with folic acid [Daily-Carissa (with folic acid)] 400 mcg tablet 1 tab PO DAILY furosemide 40 mg tablet 40 mg PO DAILY pyridoxine (vitamin B6) 50 mg tablet 50 mg PO DAILY spironolactone 25 mg tablet 25 mg PO DAILY trazodone 50 mg tablet 50 mg PO BEDTIME ferrous sulfate 324 mg (65 mg iron) tablet,delayed release (DR/EC) 324 mg PO DAILY acamprosate 333 mg tablet,delayed release (DR/EC) 666 mg PO TID nadolol 20 mg tablet 20 mg PO DAILY hydroxyzine HCl 25 mg tablet 25 mg PO BID PRN pantoprazole 40 mg tablet,delayed release (DR/EC) 40 mg PO DAILY cholecalciferol (vitamin D3) 1,250 mcg (50,000 unit) capsule 1,250 mcg PO QWEEK Xifaxan 550 mg tablet 550 mg PO BID Referrals: Claudia Nelson MD [Primary Care Provider] - 1 week
[2023-04-03 08:32] VITALS: BP 148/100; BP 168/105; PULSE 100; PULSE 112; RESP 16; TEMP 36.9; O2SAT 93; O2SAT 96; BMI 28.9
--- NOTE | 2023-04-03 08:45 | PC.NURSE ---
Pt found facedown at home by friend, EMS found to be agonal breathing, Narcan given IN4mg, pt ambu provider a few rescue breaths, pt now sating 88-95%. Pt denies any drug use, repeatedly saying he only smokes THC, but gets it from a trusted place. Found with needle next to him by police. insurance claim approver by security done, pt on monitor, RA, orders placed by provider at this time.
[2023-04-03 09:46] LABS: Ethanol 83 mg/dL
--- NOTE | 2023-04-03 10:06 | PC.NURSE ---
Pt brother in law Rajendra called to get an update on patient. Pt verbalized it was okay to give him information. Noted he was doing okay, just currently awaiting for scan results. Rajendra can be reached at [phone]. he reported he can come pick patient up when he gets to d/c
[2023-04-03 11:16] VITALS: BP 135/79; PULSE 87; RESP 18; TEMP 36.8; O2SAT 97
[2023-04-03] MEDS: Naloxone HCl Nasal TAKE HOME 4 MG SPRAY 8 MG NOSTRILALT (11:19)
--- NOTE | 2023-04-03 12:34 | HO.SUDE ---
Met with pt in ED5 to compete SUDE. Pt informs he has been sober from ETOH for the past 15 months but drank about 3 pints last night and informs he has not used any other substances and does not want or need recovery support or ATS.
== END 2023-04-03 11:21 | disposition home or self-care (01) ==
PROVIDERS: Emergency Provider Emergency Medicine; PCP Internal Medicine
DX: T40.2X1A Poisoning by other opioids, accidental (unintentional), initial encounter (principal); R40.4 Transient alteration of awareness; S00.33XA Contusion of nose, initial encounter; W18.39XA Other fall on same level, initial encounter; F10.10 Alcohol abuse, uncomplicated; Y90.4 Blood alcohol level of 80-99 mg/100 ml; F17.210 Nicotine dependence, cigarettes, uncomplicated; Y93.89 Activity, other specified; Y92.410 Unspecified street and highway as the place of occurrence of the external cause; Y99.9 Unspecified external cause status; Z79.899 Other long term (current) drug therapy
CPT/HCPCS: 36415; 70160; 70450; 80307; 99284; 99285

== ENCOUNTER 2023-04-13 01:21 | Emergency (ER) | payer MEDICAID, SELFPAY ==
--- NOTE | ~2023-04-13 | CT_ITS ---
EXAMINATION: CT head/brain wo IV con CLINICAL INFORMATION: Reason for Exam s/p fall COMPARISON: None. TECHNIQUE: Contiguous axial imaging was performed from the skull base to vertex without intravenous contrast. Sagittal and coronal reformatted images were obtained. This CT examination was performed using dose optimization techniques as appropriate, variously including the following: * Automated exposure control * Adjustment of mA and/or kV according to patient size (this includes techniques or standardized protocols for targeted exams where dose is matched to indication/reason for exam; i.e. extremities or head) Use of iterative reconstruction technique DLP: 763 mGy-cm FINDINGS: No acute osseous or soft tissue abnormality. The mastoid air cells and visualized portions of the paranasal sinuses are well aerated. There is no evidence of acute intracranial hemorrhage or territorial infarction. No abnormal mass effect or midline shift is seen. Jose to white matter differentiation is well preserved. No extra-axial fluid collections are identified. No hydrocephalus. Darnell cisterna magna No significant volume loss. There is no abnormal attenuation within the brain parenchyma. CT/CT head/brain wo IV con IMPRESSION: No acute intracranial abnormality including hemorrhage, mass effect, hydrocephalus, or acute territorial edematous infarction.
[2023-04-13 01:31] VITALS: BP 147/100; BP 160/77; PULSE 105; PULSE 92; RESP 16; TEMP 37.1; O2SAT 95; O2SAT 97; BMI 29.6
--- NOTE | 2023-04-13 01:31 | ECG_ITS ---
Test Reason : OVER DOSE Blood Pressure : / mmHG Vent. Rate : 091 BPM Atrial Rate : 091 BPM P-R Int : 144 ms QRS Dur : 090 ms QT Int : 382 ms P-R-T Axes : 048 030 034 degrees QTc Int : 469 ms Normal sinus rhythm Normal ECG When compared with ECG of 13-MAY-2021 18:26, T wave amplitude has increased in Anterior leads QT has shortened Referred By: Generic ED Physician Electronically Signed By:MANI JENKINS
[2023-04-13 01:37] LABS: Glucose, Whole Blood 121 mg/dL (60-115)
[2023-04-13 01:40] VITALS: BP 160/77; PULSE 86; RESP 12; TEMP 36.7; O2SAT 95
--- NOTE | 2023-04-13 01:52 | ED_ITS ---
HPI - Alcohol General Chief Complaint: Overdose Stated Complaint: od 4mfg narcan given, now awake Time Seen by Provider: 04/13/23 01:34 Source: patient Mode of arrival: EMS Limitations: no limitations History of Present Illness HPI narrative: patient 48 years old with history of alcohol and heroin abuse denies any use of heroin lately but been drinking all day today rollover from the couch to the floor and became semi-responsive responded room 4 mg of Narcan. Denies any chest pain or palpitation no shortness of breath no fever chills no abdominal pain no nausea vomiting Related Data Home Medications Medication Instructions Recorded Confirmed folic acid 1 mg tablet 1 tab PO DAILY 05/14/21 05/09/22 multivitamin with folic acid 400 1 tab PO DAILY 05/14/21 05/09/22 mcg tablet (Daily-Carissa (with folic acid)) thiamine HCl (vitamin B1) 100 mg 1 tab PO DAILY 05/14/21 05/09/22 tablet acamprosate 333 mg tablet,delayed 666 mg PO TID 02/27/22 05/09/22 release cholecalciferol (vitamin D3) 1,250 1,250 mcg PO QWEEK 02/27/22 05/09/22 mcg (50,000 unit) capsule ferrous sulfate 324 mg (65 mg 324 mg PO DAILY 02/27/22 05/09/22 iron) tablet,delayed release hydroxyzine HCl 25 mg tablet 25 mg PO BID PRN 02/27/22 05/09/22 nadolol 20 mg tablet 20 mg PO DAILY 02/27/22 05/09/22 pantoprazole 40 mg tablet,delayed 40 mg PO DAILY 02/27/22 05/09/22 release pyridoxine (vitamin B6) 50 mg 50 mg PO DAILY 02/27/22 05/09/22 tablet rifaximin 550 mg tablet (Xifaxan) 550 mg PO BID 02/27/22 05/09/22 spironolactone 25 mg tablet 25 mg PO DAILY 02/27/22 05/09/22 trazodone 50 mg tablet 50 mg PO BEDTIME 02/27/22 05/09/22 furosemide 40 mg tablet 40 mg PO DAILY 05/09/22 05/09/22 Previous Rx's Medication Instructions Recorded melatonin 3 mg capsule 3 mg PO BEDTIME PRN sleep #30 caps 06/29/20 nicotine 21 mg/24 hr daily 1 patch transdermal Q24H #14 ea 06/29/20 transdermal patch (Nicoderm CQ) Allergies Allergy/AdvReac Type Severity Reaction Status Date / Time No Known Allergies Allergy Verified 04/03/23 08:36 [No Known Allergies*] Review of Systems Review of Systems: Yes all other systems are reviewed and are negative [facility] Past Medical History Medical History Afib Alcohol abuse Alcohol dependence Alcohol use disorder Anxiety Asthma HTN (hypertension) Obesity Tobacco dependence Surgical History History of ankle surgery Family History Family History Mother Colon cancer Diabetes Social History Social History Household Members: Family Housing: House Do you presently have visiting nurse or other home services: No Alcohol intake: current Alcohol intake frequency: a few times a week Alcohol type: beer Patient Tobacco Use Status: Current someday Tobacco user Tobacco use type: Cigarette Cigarette Packs Per Day: 1 Smoked in Last 30 Days: No e-Cigarette/Vaping Use: Never Used Use of substances other than those prescribed or required for medical reasons: Yes Substance Use Type: Unknown Advance Directives: Yes Advance Directives on File: Yes Advance Directives Date on File: 06/30/20 service: No Current occupational status: employed Physical Exam ED Vital Signs: Vital Signs - 24 hr 04/13/23 01:31 04/13/23 01:40 04/13/23 03:01 Temperature 98.7 F 98.1 F 97.5 F Pulse Rate 92 86 76 Respiratory Rate 16 12 16 Blood Pressure 160/77 H 160/77 H 103/57 L Pulse Oximetry 97 95 96 Oxygen Delivery Method Room Air Room Air Room Air 04/13/23 03:38 04/13/23 05:51 Temperature Pulse Rate 72 69 Respiratory Rate 7 L 13 Blood Pressure 99/52 L 102/52 L Pulse Oximetry 94 95 Oxygen Delivery Method Room Air Room Air BMI result Body Mass Index 29.6 Appearance: Alert. Oriented X3. No acute distress. ETOH+ Eyes: PERRLA, No Nystagmus ENT: Pharynx normal. Oral Mucosa moist , old bruise left forehead Neck: Normal inspection. Neck supple. CVS: Normal heart rate and rhythm. Pulses normal. Respiratory: No respiratory distress. Equal air entry bilateral, no wheezing/rales/rhonchi Abdomen: Soft and nontender. Bowel sounds are present, no mass palpable, no CVA tenderness Skin: Skin warm and dry. Normal skin color. Normal skin turgor. Extremities: No lower extremity edema. No calf tenderness Neuro: Oriented X 3. No motor deficit. No sensory deficit.No cerebellar signs , cranial nerves II-XII intact Medical Decision Making Medical Decision Making [facility] Narrative: Patient with alcohol abuse likely had opiates earlier patient refuses but responded to Narcan. Has not given a urine sample to test ambulated to the CT scan taking p.o. fluids CT scan of the head is negative patient does not want any detox placement will discharge patient home Differential Diagnosis Differential Diagnoses: The differential diagnosis associated with the presentation includes Head injury/SDH/alcohol intoxication/metabolic encephalopathy/polysubstance abuse Admission/Observation Consideration of admission/observation: Escalation of care including admission/observation considered Lab Data [facility] Lab Attestation statement: I reviewed the patient's lab results. 04/13/23 01:54 04/13/23 01:54 Labs: Lab Results 04/13/23 04/13/23 04/13/23 Range/Units 01:33 01:54 01:54 WBC 5.5 (4.8-10.8) X10*3/uL RBC 4.66 (4.60-5.80) X10*6/uL Hgb 14.4 (14.0-18.0) g/dl Hct 43.6 (42.0-52.0) % MCV 93.6 (80.0-98.0) fL MCH 30.9 (27.0-33.0) pg MCHC 33.0 (31.0-36.0) g/dl RDW 14.0 (11.0-16.0) % Plt Count 145 L D (160-400) X10*3/uL MPV 9.6 (9.4-12.4) fL Immature Gran % (Auto) 0.9 H (0.0-0.4) % Neut % (Auto) 65.2 (45-73) % Lymph % (Auto) 21.1 (20-40) % [place] % (Auto) 9.2 (2-11) % Eos % (Auto) 2.9 (0-4) % Baso % (Auto) 0.7 (0-2) % Lymph # (Auto) 1.2 (1.2-4.9) X10*3/uL [place] # (Auto) 0.5 (0.1-1.2) X10*3/uL Eos # (Auto) 0.2 (0.0-0.4) X10*3/uL Baso # (Auto) 0.0 (0.0-0.2) X10*3/uL Abs Immat Gran (auto) 0.05 H (0.00-0.03) X10*3/uL Absolute Neuts (auto) 3.6 (2.0-8.3) x10*3/uL Absolute Nucleated RBC 0.000 (0.0-0.012) X10*3/uL Nucleated RBC % (auto) 0.0 (0.0-0.2) /100WBC Sodium 137 (135-145) mmol/L Potassium 3.9 (3.3-5.1) mmol/L Chloride 103 (96-108) mmol/L Carbon Dioxide 18 L (22-29) mmol/L Anion Gap 20 (12-20) BUN 9 (9-16) mg/dL Creatinine 0.72 (0.5-1.4) mg/dL Estim Creat Clear Calc 151.1 Estimated GFR > 60 POC Glucose 121 H (60-115) mg/dL Random Glucose 111 (60-115) mg/dL Calcium 9.2 (8.4-10.2) mg/dL Magnesium 1.9 (1.6-2.6) mg/dL Total Bilirubin 1.3 H (0.0-1.0) mg/dL AST 39 H (5-37) U/L ALT 32 (0-40) U/L Alkaline Phosphatase 72 (39-117) U/L Troponin I High Sens (<3.5-35.0) ng/L Total Protein 7.6 (6.5-8.0) g/dL Albumin 3.7 (3.5-5.0) g/dL Ethyl Alcohol 151 mg/dL 09/01/23 Range/Units 01:54 WBC (4.8-10.8) X10*3/uL RBC (4.60-5.80) X10*6/uL Hgb (14.0-18.0) g/dl Hct (42.0-52.0) % MCV (80.0-98.0) fL MCH (27.0-33.0) pg MCHC (31.0-36.0) g/dl RDW (11.0-16.0) % Plt Count (160-400) X10*3/uL MPV (9.4-12.4) fL Immature Gran % (Auto) (0.0-0.4) % Neut % (Auto) (45-73) % Lymph % (Auto) (20-40) % [place] % (Auto) (2-11) % Eos % (Auto) (0-4) % Baso % (Auto) (0-2) % Lymph # (Auto) (1.2-4.9) X10*3/uL [place] # (Auto) (0.1-1.2) X10*3/uL Eos # (Auto) (0.0-0.4) X10*3/uL Baso # (Auto) (0.0-0.2) X10*3/uL Abs Immat Gran (auto) (0.00-0.03) X10*3/uL Absolute Neuts (auto) (2.0-8.3) x10*3/uL Absolute Nucleated RBC (0.0-0.012) X10*3/uL Nucleated RBC % (auto) (0.0-0.2) /100WBC Sodium (135-145) mmol/L Potassium (3.3-5.1) mmol/L Chloride (96-108) mmol/L Carbon Dioxide (22-29) mmol/L Anion Gap (12-20) BUN (9-16) mg/dL Creatinine (0.5-1.4) mg/dL Estim Creat Clear Calc Estimated GFR POC Glucose (60-115) mg/dL Random Glucose (60-115) mg/dL Calcium (8.4-10.2) mg/dL Magnesium (1.6-2.6) mg/dL Total Bilirubin (0.0-1.0) mg/dL AST (5-37) U/L ALT (0-40) U/L Alkaline Phosphatase (39-117) U/L Troponin I High Sens 9.2 (<3.5-35.0) ng/L Total Protein (6.5-8.0) g/dL Albumin (3.5-5.0) g/dL Ethyl Alcohol mg/dL Independent Interpretation I performed an independent interpretation of an: EKG Interpretation: Normal sinus rhythm heart rate 91 beats per minute normal interval normal axis no acute ST-T changes no acute ischemia Medications Administered Discontinued Medications Generic Name Dose Route Start Last Admin Trade Name Freq PRN Reason Stop Dose Admin Sodium Chloride 1,000 mls @ 999 mls/hr 04/13/23 01:34 04/13/23 03:01 Ns IV 04/13/23 02:34 Infused .Q1H1M ONE Infusion Discharge Plan Discharge Clinical Impression: Alcohol use disorder Patient Disposition: Home, Self-Care Instructions: Abuse of Alcohol (ED), Opioid Use Disorder (ED) Additional Instructions: Stop drinking alcohol and other drugs Follow-up with detox Prescriptions: No Action melatonin 3 mg capsule 3 mg PO BEDTIME PRN (Reason: sleep) Qty: 30 0RF nicotine [Nicoderm CQ] 21 mg/24 hr patch 24 hour 1 patch transdermal Q24H Qty: 14 0RF thiamine HCl (vitamin B1) 100 mg tablet 1 tab PO DAILY folic acid 1 mg tablet 1 tab PO DAILY multivitamin with folic acid [Daily-Carissa (with folic acid)] 400 mcg tablet 1 tab PO DAILY furosemide 40 mg tablet 40 mg PO DAILY pyridoxine (vitamin B6) 50 mg tablet 50 mg PO DAILY spironolactone 25 mg tablet 25 mg PO DAILY trazodone 50 mg tablet 50 mg PO BEDTIME ferrous sulfate 324 mg (65 mg iron) tablet,delayed release (DR/EC) 324 mg PO DAILY acamprosate 333 mg tablet,delayed release (DR/EC) 666 mg PO TID nadolol 20 mg tablet 20 mg PO DAILY hydroxyzine HCl 25 mg tablet 25 mg PO BID PRN pantoprazole 40 mg tablet,delayed release (DR/EC) 40 mg PO DAILY cholecalciferol (vitamin D3) 1,250 mcg (50,000 unit) capsule 1,250 mcg PO QWEEK Xifaxan 550 mg tablet 550 mg PO BID Interventions: ED Discharge Assessment Last Done: 04/13/23 06:37 Discharge Date/Time: 04/13/23 06:38
[2023-04-13 01:58] LABS: MANUAL DIFF FLAG NO
[2023-04-13 01:59] LABS: Basophils Percent Auto 0.7 % (0-2); Eosinophils Absolute Auto 0.2 X10*3/uL (0.0-0.4); Eosinophils Percent Auto 2.9 % (0-4); Hematocrit 43.6 % (42.0-52.0); Hemoglobin 14.4 g/dl (14.0-18.0); Imm Gran Abs Auto 0.05 X10*3/uL (0.00-0.03); Imm Gran Pct Auto 0.9 % (0.0-0.4); Lymphocytes Absolute Auto 1.2 X10*3/uL (1.2-4.9); Lymphocytes Percent Auto 21.1 % (20-40); Mean Corpuscular Hemoglobin 30.9 pg (27.0-33.0); Mean Corpuscular Volume 93.6 fL (80.0-98.0); Mean Platelet Volume 9.6 fL (9.4-12.4); Monocytes Absolute Auto 0.5 X10*3/uL (0.1-1.2); Monocytes Percent Auto 9.2 % (2-11); Neutrophils Absolute Auto 3.6 x10*3/uL (2.0-8.3); Neutrophils Percent Auto 65.2 % (45-73); Platelet Count 145 X10*3/uL (160-400); Red Blood Count 4.66 X10*6/uL (4.60-5.80); White Blood Count 5.5 X10*3/uL (4.8-10.8)
[2023-04-13] MEDS: 0.9 % Sodium Chloride 1,000 ML 999 ML IV (02:00)
[2023-04-13 02:20] LABS: Alanine Aminotransferase 32 U/L (0-40); Albumin Level 3.7 g/dL (3.5-5.0); Alkaline Phosphatase 72 U/L (39-117); Anion Gap 20 (12-20); Aspartate Amino Transferase 39 U/L (5-37); Bilirubin Total 1.3 mg/dL (0.0-1.0); Blood Urea Nitrogen 9 mg/dL (9-16); Calcium 9.2 mg/dL (8.4-10.2); Carbon Dioxide 18 mmol/L (22-29); Chloride 103 mmol/L (96-108); Creatinine Clr Calc Pharmacy 151.1; Estimated Glomerular Filt Rate > 60; Ethanol 151 mg/dL; Glucose Random 111 mg/dL (60-115); Magnesium 1.9 mg/dL (1.6-2.6); Potassium 3.9 mmol/L (3.3-5.1); Sodium 137 mmol/L (135-145); Total Protein 7.6 g/dL (6.5-8.0)
--- NOTE | 2023-04-13 02:21 | PC.NURSE ---
Pt BIBA for reported overdose, son found face down and report he started using heroin, pt denies. Pt received narcan 2mg intranasal and 2 mg intramuscularly with positive response. Pt has bruising to L-side of face/eye. IV #20 placed in R-AC, labs drawn and sent, EKG and CT complete. Fluids hung and patient changed over and belongings in decon. Pt reports it would have been his wifes bday but she passed 3 years ago and fathers anniversary. Pt denies SI/HI.
[2023-04-13 02:23] LABS: Troponin-I High Sensitivity 9.2 ng/L (<3.5-35.0)
--- NOTE | 2023-04-13 02:26 | MHC.EDTECH ---
PATIENT IS CHANGED OVER INTO HOSPITAL ATTIRE ALL BELONGING ARE LOCKED INTO DECON.
[2023-04-13 03:01] VITALS: BP 103/57; PULSE 76; RESP 16; TEMP 36.4; O2SAT 96
[2023-04-13 03:38] VITALS: BP 99/52; PULSE 72; RESP 7; O2SAT 94
[2023-04-13 05:51] VITALS: BP 102/52; PULSE 69; RESP 13; O2SAT 95
--- NOTE | 2023-04-13 06:12 | PC.NURSE ---
Pt given food per MD request for PO request
--- NOTE | 2023-04-13 06:37 | PC.NURSE ---
Reviewed discharge instruction with pt, pt verbalized understanding, notified FERNANDO Parsons
== END 2023-04-13 06:38 | disposition home or self-care (01) ==
PROVIDERS: Emergency Provider Internal Medicine
DX: T51.0X1A Toxic effect of ethanol, accidental (unintentional), initial encounter (principal); F10.129 Alcohol abuse with intoxication, unspecified; Y90.2 Blood alcohol level of 40-59 mg/100 ml; F17.210 Nicotine dependence, cigarettes, uncomplicated; R51.9 Headache, unspecified; Y92.9 Unspecified place or not applicable; Z71.6 Tobacco abuse counseling; Z79.899 Other long term (current) drug therapy; Z71.51 Drug abuse counseling and surveillance of drug abuser
CPT/HCPCS: 36415; 70450; 80053; 80307; 82947; 83735; 84484; 85025; 93005; 96360; 99284; 99285

== ENCOUNTER 2023-07-24 00:08 | Emergency (ER) | payer MEDICAID, SELFPAY ==
--- NOTE | 2023-07-24 | ECG_ITS ---
Test Reason : OD Blood Pressure : / mmHG Vent. Rate : 095 BPM Atrial Rate : 095 BPM P-R Int : 160 ms QRS Dur : 092 ms QT Int : 376 ms P-R-T Axes : 063 044 048 degrees QTc Int : 472 ms Normal sinus rhythm Normal ECG When compared with ECG of 13-APR-2023 01:31, No significant change was found Referred By: Addison Mosley Electronically Signed By:Azam Dacosta
[2023-07-24 00:21] VITALS: BP 135/89; BP 170/92; PULSE 101; PULSE 114; RESP 15; TEMP 37.1; O2SAT 98; BMI 30.6
--- NOTE | 2023-07-24 00:26 | ED_ITS ---
HPI - Overdose General Chief Complaint: Overdose Stated Complaint: Overdose Time Seen by Provider: 07/24/23 00:26 Source: patient Mode of arrival: EMS Limitations: no limitations History of Present Illness HPI Narrative: Patient will use a bag of heroin/fentanyl does not use it very often was having shallow breathing bag by [facility] was given 4 mg Narcan and again 2 mg Marcaine by EMS now patient awake back to normal denies any suicidal ideation does not use drugs very often and does not want to go to detox Related Data Home Medications Medication Instructions Recorded Confirmed folic acid 1 mg tablet 1 tab PO DAILY 05/14/21 05/09/22 multivitamin with folic acid 400 1 tab PO DAILY 05/14/21 05/09/22 mcg tablet (Daily-Carissa (with folic acid)) thiamine HCl (vitamin B1) 100 mg 1 tab PO DAILY 05/14/21 05/09/22 tablet acamprosate 333 mg tablet,delayed 666 mg PO TID 02/27/22 05/09/22 release cholecalciferol (vitamin D3) 1,250 1,250 mcg PO QWEEK 02/27/22 05/09/22 mcg (50,000 unit) capsule ferrous sulfate 324 mg (65 mg 324 mg PO DAILY 02/27/22 05/09/22 iron) tablet,delayed release hydroxyzine HCl 25 mg tablet 25 mg PO BID PRN 02/27/22 05/09/22 nadolol 20 mg tablet 20 mg PO DAILY 02/27/22 05/09/22 pantoprazole 40 mg tablet,delayed 40 mg PO DAILY 02/27/22 05/09/22 release pyridoxine (vitamin B6) 50 mg 50 mg PO DAILY 02/27/22 05/09/22 tablet rifaximin 550 mg tablet (Xifaxan) 550 mg PO BID 02/27/22 05/09/22 spironolactone 25 mg tablet 25 mg PO DAILY 02/27/22 05/09/22 trazodone 50 mg tablet 50 mg PO BEDTIME 02/27/22 05/09/22 furosemide 40 mg tablet 40 mg PO DAILY 05/09/22 05/09/22 Previous Rx's Medication Instructions Recorded melatonin 3 mg capsule 3 mg PO BEDTIME PRN sleep #30 caps 06/29/20 nicotine 21 mg/24 hr daily 1 patch transdermal Q24H #14 ea 06/29/20 transdermal patch (Nicoderm CQ) Allergies Allergy/AdvReac Type Severity Reaction Status Date / Time No Known Allergies Allergy Verified 07/24/23 00:18 [No Known Allergies*] Review of Systems Review of Systems: Yes all other systems are reviewed and are negative [facility] Past Medical History Medical History Afib Anxiety Alcohol abuse Alcohol dependence Obesity Tobacco dependence Alcohol use disorder Asthma HTN (hypertension) Surgical History History of ankle surgery Family History Family History Mother Colon cancer Diabetes Social History Social History Household Members: Family Housing: House Do you presently have visiting nurse or other home services: No Alcohol intake: current Alcohol intake frequency: a few times a month Alcohol type: beer and hard liquor Patient Tobacco Use Status: Current someday Tobacco user Tobacco use type: Cigarette Cigarette Packs Per Day: 1 Smoked in Last 30 Days: Yes e-Cigarette/Vaping Use: Never Used Use of substances other than those prescribed or required for medical reasons: Yes Substance Use Type: Crack/Cocaine Any prior treatment program specific to substance use: No Advance Directives: Yes Advance Directives on File: Yes Advance Directives Date on File: 06/30/20 service: No Current occupational status: employed Physical Exam Vital Signs: Vital Signs: Last Vital Signs Temp 98.7 F 07/24/23 00:21 Pulse 101 H 07/24/23 00:21 Resp 15 07/24/23 00:21 BP 135/89 07/24/23 00:21 Pulse Ox 98 07/24/23 00:21 BMI result Body Mass Index 30.6 Appearance: Alert. Oriented X3. No acute distress. Eyes: PERRLA, No Nystagmus ENT: Pharynx normal. Oral Mucosa moist Neck: Normal inspection. Neck supple. CVS: Normal heart rate and rhythm. Pulses normal. Respiratory: No respiratory distress. Equal air entry bilateral, no wheezing/rales/rhonchi Abdomen: Soft and nontender. Bowel sounds are present, no mass palpable, no CVA tenderness Skin: Skin warm and dry. Normal skin color. Normal skin turgor. Extremities: No lower extremity edema. No calf tenderness Neuro: Oriented X 3. No motor deficit. No sensory deficit.No cerebellar signs , cranial nerves II-XII intact Medical Decision Making Medical Decision Making MDM Narrative: Patient with occasional substance abuse denied any use of regular opiate abuse will feels safe at home saturating 98% room air discharge patient home Discharge Plan Discharge Clinical Impression: Accidental opiate poisoning Patient Disposition: Home, Self-Care Instructions: Opioid Use Disorder (ED) Additional Instructions: Stop using drugs Follow-up with detox Prescriptions: No Action melatonin 3 mg capsule 3 mg PO BEDTIME PRN (Reason: sleep) Qty: 30 0RF nicotine [Nicoderm CQ] 21 mg/24 hr patch 24 hour 1 patch transdermal Q24H Qty: 14 0RF thiamine HCl (vitamin B1) 100 mg tablet 1 tab PO DAILY folic acid 1 mg tablet 1 tab PO DAILY multivitamin with folic acid [Daily-Carissa (with folic acid)] 400 mcg tablet 1 tab PO DAILY furosemide 40 mg tablet 40 mg PO DAILY pyridoxine (vitamin B6) 50 mg tablet 50 mg PO DAILY spironolactone 25 mg tablet 25 mg PO DAILY trazodone 50 mg tablet 50 mg PO BEDTIME ferrous sulfate 324 mg (65 mg iron) tablet,delayed release (DR/EC) 324 mg PO DAILY acamprosate 333 mg tablet,delayed release (DR/EC) 666 mg PO TID nadolol 20 mg tablet 20 mg PO DAILY hydroxyzine HCl 25 mg tablet 25 mg PO BID PRN pantoprazole 40 mg tablet,delayed release (DR/EC) 40 mg PO DAILY cholecalciferol (vitamin D3) 1,250 mcg (50,000 unit) capsule 1,250 mcg PO QWEEK Xifaxan 550 mg tablet 550 mg PO BID Interventions: ED Discharge Assessment Last Done: 07/24/23 05:43 Discharge Date/Time: 07/24/23 01:45
--- NOTE | 2023-07-24 00:45 | MHC.EDTECH ---
Patient came to the hospital for an overdose provider doses not want patient changed over and doses not want belongings in decon pending discharge plan of care is ongoing
== END 2023-07-24 01:45 | disposition home or self-care (01) ==
PROVIDERS: Emergency Provider Internal Medicine; PCP Internal Medicine
DX: T40.1X1A Poisoning by heroin, accidental (unintentional), initial encounter (principal); Y92.9 Unspecified place or not applicable; F14.10 Cocaine abuse, uncomplicated; Z79.899 Other long term (current) drug therapy
CPT/HCPCS: 93005; 99283; 99284

== ENCOUNTER → 2023-07-24 00:29 | Outpatient (BNV) | payer MEDICAID, SELFPAY | PROVIDERS: Emergency Provider Internal Medicine; PCP Internal Medicine; Visit Provider Internal Medicine Cardiovascular Disease | DX: R06.02 Shortness of breath (principal); F11.10 Opioid abuse, uncomplicated | CPT/HCPCS: 93010 ==